=== PATIENT | male | born 1965 | race Caucasian/White ===

== ENCOUNTER 2018-04-18 03:48 | Inpatient (IN) ==
--- NOTE | 2018-04-18 03:49 | PROVIDER DOCUMENTATION ---
HPI-Respiratory General - General Stated Complaint: fever Time Seen by Provider: 04/18/18 03:48 Source: EMS, EMS notes reviewed, other (housekeeper/laundry assistant) Allergies/Adverse Reactions: Patient Allergies Allergy/AdvReac Type Severity Reaction Status Date / Time ibuprofen Allergy Unknown Verified 02/18/14 11:27 Home Medications: Home Medication List Medication Instructions Recorded Confirmed Last Taken Type Ascorbic Acid [Vitamin C] 500 mg PO DAILY 02/18/14 03/03/15 Unknown History Clomipramine [Anafranil] 50 mg PO HS 02/18/14 03/03/15 Unknown History Clonazepam 0.5 mg PO BID 02/18/14 03/03/15 Unknown History Divalproex Sodium [Divalproex 250 mg PO BID 02/18/14 03/03/15 Unknown History Sodium ER] Quetiapine Fumarate 100 mg PO BID 02/18/14 03/03/15 Unknown History Olanzapine Rapdis [Zyprexa Zydis] 10 mg PO QAM PRN PRN #30 tablet 07/16/1403/03 Unknown Rx Esomeprazole [Nexium] 40 mg PO BID 03/03/15 03/03/15 Unknown History Fluoxetine HCl 40 mg PO QAM 03/03/15 03/03/15 Unknown History Iron Fum,Ps/Folic/Bcomp,C No.9 1 tab PO DAILY 03/03/15 03/03/15 Unknown History [Integra Plus Capsule] Neomycin Hussein/Bacitrac Zn/Poly 1 applicatn TOP TID 03/03/15 03/03/15 Unknown History [Triple Antibiotic Ointment] Tamsulosin HCl 0.4 mg PO HS 03/03/15 03/03/15 Unknown History Zinc Oxide 20% Ointment 1 applicatn TOP BID 03/03/15 03/03/15 Unknown History Cefprozil [Cefzil] 500 mg PO BID #20 tab 08/20/17 Unknown Rx - History of Present Illness-Resp Nature of Presenting Problem: Cough, SOB, AMS, fever, decreased activity, decreased po intake, and decreased urine output gradually over the last couple of days. No vomiting or diarrhea. Code status is currently unknown. Quality of Pain: reports: none Severity in ED: reports: moderate Onset/Duration: reports: 2 days ago Timing: reports: still present, constant, getting worse Context: reports: multiple patients with similar complaints, recent URI Exposure: reports: unknown cause Cough Quality/Degree: reports: moderate Episode Frequency: rare episodes Current Respiratory Medication Therapy: Initiated none Modifying Factors: improves with: nothing Associated Symptoms: reports: cough, fever/chills Similar Symptoms Previously?: No Recently seen or treated by another doctor?: No (sandra Wilkinson) Review of Systems - Adult - REVIEW OF SYSTEMS - ADULT ROS:: limited per condition Constitutional: reports: see HPI, fever. denies: chills, night sweats Eyes: reports: no symptoms reported Ears, Nose, Mouth & Throat: reports: no symptoms reported Cardiovascular: reports: no symptoms reported Respiratory: reports: see HPI, cough, excessive sputum production, shortness of breath Gastrointestinal: reports: see HPI, poor appetite. denies: diarrhea, vomiting Genitourinary: reports: no symptoms reported Musculoskeletal: reports: no symptoms reported Integumentary: reports: no symptoms reported Neurological: reports: see HPI Psychiatric: reports: no symptoms reported Endocrine: reports: no symptoms reported Hematologic/Lymphatic: reports: no symptoms reported Allergic/Immunologic: reports: no symptoms reported All Other Systems: Reviewed and Negative Past History - Adult - PAST MEDICAL HISTORY-ADULT Review of Records: reports: Old Records Reviewed, Nursing Assessment Review, Medications Reviewed, Social history reviewed & non-contributory. Major Childhood Illnesses: reports: history unknown Cardiovascular: reports: HTN Respiratory: reports: denies history Gastrointestinal: reports: GERD Obstetrical/Gynecological: reports: denies history Genitourinary: reports: denies history Musculoskeletal: reports: denies history Neurological: reports: speech difficulty, spinal cord/brain injury (cauda equina ), other (special needs/autistic) Psychiatric: reports: psychiatric problems, other (MR) Endocrine/Immune: reports: denies history Other Conditions: reports: denies history - PRIOR SURGERIES/PROCEDURES Surgical/Procedure History: reports: reviewed, not pertinent - PRIOR HOSPITALIZATIONS Prior Hospitalizations: reports: none - IMMUNIZATION STATUS Childhood Immunizations: See Nurse Assessment Flu Vaccine: See Nurse Assessment - FAMILY HISTORY Family History: reviewed, not pertinent - SOCIAL HISTORY Smoking: non-smoker Substance Use: none/never Alcohol Use Frequency: never Living Situation: other (has a housekeeper/laundry assistant) Physical Exam-General - PHYSICAL EXAM-ADULT Initial Vital Signs Reviewed: Yes (tachycardic, tachypneic, febrile) - CONSTITUTIONAL General Appearance: alert, mild distress, other (tongue thrusting, chronically ill appearing) - EYES Eyes: PERRL/EOMI, pale conjunctivae - HEAD, EARS, NOSE, MOUTH & THROAT HENMT: normocephalic/atraumatic, normal ENT inspection, other (dry mucous membranes) - NECK Neck: non-tender, full range of motion, supple, normal inspection. negative: Brudzinski's sign - RESPIRATORY Respiratory: chest non-tender, no pleuratic chest pain, no respiratory distress , no accessory muscle use, rhonchi, wheezing, increased rate. negative: lungs clear, normal breath sounds - CARDIOVASCULAR Cardiovascular: normal peripheral pulses, regular rate, rhythm, no edema, no gallop, no JVD, no murmur, tachycardia - GASTROINTESTINAL (ABDOMEN) Abdominal Exam: normal bowel sounds, non tender, soft, no organomegaly, no pulsatile mass - LYMPHATIC Lymphatic: no adenopathy - MUSCULOSKELETAL Back Exam: normal inspection, no CVA tenderness, no vertebral tenderness Extremity: normal range of motion, non-tender, no pedal edema, no calf tenderness, normal capillary refill - SKIN Integumentary: normal turgor, warm/dry, pallor - NEUROLOGIC Neurologic: ambulance operations supervisor II-XII nml as tested, no motor/sensory deficits, abnormal gait, other (mumbles incoherently. Does not follow commands) - PSYCHIATRIC Psych/Mental Status: anxious Progress - PLAN OF CARE/RESULTS Progress/Plan/Lab Results: Vital Signs - 8 hr 04/18/18 03:53 04/18/18 04:05 Temperature 99.4 F Pulse Rate 111 H 90 Respiratory Rate 22 18 Blood Pressure 139/68 O2 Sat by Pulse Oximetry 100 Laboratory Results - last 24 hr 04/18/18 04/18/18 04/18/18 04:05 04:05 04:05 WBC 9.62 RBC 4.24 L Hgb 13.0 L Hct 39.1 L MCV 92.2 MCH 30.7 MCHC 33.2 RDW Std Deviation 13.5 Plt Count 175 MPV 11.6 H Immature Gran % (Auto) 0.2 Neut % (Auto) 83.3 H Lymph % (Auto) 7.1 L [place] % (Auto) 9.3 Eos % (Auto) 0.0 Baso % (Auto) 0.1 Immature Gran # (Auto) 0.02 Neut # (Auto) 8.02 H Lymph # (Auto) 0.68 L [place] # (Auto) 0.89 H Eos # (Auto) 0.00 Baso # (Auto) 0.01 PT INR Specimen Type Sample Site pH pCO2 pO2 HCO3 Base Excess Oxyhemoglobin ABG O2 Sat (Calculated) ABG O2 Saturation ABG Carboxyhemoglobin ABG Methemoglobin Adair Test A-a O2 Difference Total Hemoglobin Lactate Blood Gas Modality FiO2 % Sodium 139 Potassium 4.6 Chloride 96 L Carbon Dioxide 26 Anion Gap 17 BUN 14 Creatinine 0.6 L Estimated GFR/1.73 m2 > 60 BUN/Creatinine Ratio 23 Glucose 96 Calculated Osmolality 278 Calcium 8.7 L Total Bilirubin 0.27 AST 20 ALT 19 Alkaline Phosphatase 70 Creatine Kinase 102 Troponin T Ebq-C-Voiivvefnvi Pept Total Protein 6.6 Albumin 3.8 Globulin 2.8 Albumin/Globulin Ratio 1.4 Plasma Lactate 4.5 H 04/18/18 04/18/18 04/18/18 04:05 04:05 04:05 WBC RBC Hgb Hct MCV MCH MCHC RDW Std Deviation Plt Count MPV Immature Gran % (Auto) Neut % (Auto) Lymph % (Auto) [place] % (Auto) Eos % (Auto) Baso % (Auto) Immature Gran # (Auto) Neut # (Auto) Lymph # (Auto) [place] # (Auto) Eos # (Auto) Baso # (Auto) PT 12.7 INR 0.88 Specimen Type Sample Site pH pCO2 pO2 HCO3 Base Excess Oxyhemoglobin ABG O2 Sat (Calculated) ABG O2 Saturation ABG Carboxyhemoglobin ABG Methemoglobin Adair Test A-a O2 Difference Total Hemoglobin Lactate Blood Gas Modality FiO2 % Sodium Potassium Chloride Carbon Dioxide Anion Gap BUN Creatinine Estimated GFR/1.73 m2 BUN/Creatinine Ratio Glucose Calculated Osmolality Calcium Total Bilirubin AST ALT Alkaline Phosphatase Creatine Kinase Troponin T < 0.010 Phv-E-Obindixiimn Pept 131 Total Protein Albumin Globulin Albumin/Globulin Ratio Plasma Lactate 04/18/18 04:18 WBC RBC Hgb Hct MCV MCH MCHC RDW Std Deviation Plt Count MPV Immature Gran % (Auto) Neut % (Auto) Lymph % (Auto) [place] % (Auto) Eos % (Auto) Baso % (Auto) Immature Gran # (Auto) Neut # (Auto) Lymph # (Auto) [place] # (Auto) Eos # (Auto) Baso # (Auto) PT INR Specimen Type ARTERIAL Sample Site R RADIAL pH 7.44 pCO2 39 pO2 59 L HCO3 26.5 H Base Excess 2.2 Oxyhemoglobin 91.3 L ABG O2 Sat (Calculated) 15.5 ABG O2 Saturation 93.6 L ABG Carboxyhemoglobin 1.80 ABG Methemoglobin 0.7 Adair Test YES A-a O2 Difference 42.0 Total Hemoglobin 12.1 Lactate 2.90 H Blood Gas Modality ROOM AIR FiO2 % 21.0 Sodium Potassium Chloride Carbon Dioxide Anion Gap BUN Creatinine Estimated GFR/1.73 m2 BUN/Creatinine Ratio Glucose Calculated Osmolality Calcium Total Bilirubin AST ALT Alkaline Phosphatase Creatine Kinase Troponin T Rkq-S-Euxpnuacvjl Pept Total Protein Albumin Globulin Albumin/Globulin Ratio Plasma Lactate Orders Category Date Time Status Saline Loc NOW Care 04/18/18 03:49 Active Straight Catheterization ORDERED Care 04/18/18 03:49 Active CHEST-PORTABLE [RAD] Stat Exams 04/18/18 03:50 Taken ABG [RESP] Routine Lab 04/18/18 04:18 Completed BLOOD CULTURE [BLDCUL] Stat Lab 04/18/18 05:00 Received CBC WITH ELECTRONIC DIFF [HEME] Stat Lab 04/18/18 04:05 Completed CK PROFILE [SP CHEM] Stat Lab 04/18/18 04:05 Results COMPREHENSIVE METABOLIC PANEL [CHEM] Stat Lab 04/18/18 04:05 Results INFLUENZA SCREEN A/B Stat Lab 04/18/18 04:50 Received LACTATE, PLASMA [CHEM] Stat Lab 04/18/18 04:05 Completed PRO B-NATRIURETIC PEPTIDE Stat Lab 04/18/18 04:05 Completed PROTIME WITH INR [COAG] Stat Lab 04/18/18 04:05 Completed TROPONIN T Stat Lab 04/18/18 04:05 Completed URINALYSIS W/POSS RFLX CULT [URINALYSIS] Stat Lab 04/18/18 04:17 Ordered VALPROIC ACID [TDM] Stat Lab 04/18/18 04:05 Results 0.9% Sodium Chloride Inj [Ns] 1,000 ml Med 04/18/18 03:50 Discontinued IV 999 mls/hr 0.9% Sodium Chloride Inj [Ns] 1,000 ml Med 04/18/18 05:18 Active IV 999 mls/hr 0.9% Sodium Chloride Inj [Ns] 500 ml Med 04/18/18 05:18 Active IV 999 mls/hr Acetaminophen [Tylenol] Med 04/18/18 03:51 Discontinued 650 mg PO NOW ONE Albuterol 2.5MG/Ipratrop 0.5MG [Duoneb (A & A)] Med 04/18/18 03:51 Discontinued 3 ml INH NOW ONE Azithromycin 500 mg/Ns [Zithromax 500 mg/Ns] Med 04/18/18 03:50 Discontinued 500 mg in 250 ml IV NOW CefTRIAXONE [Rocephin] 1 gm Med 04/18/18 03:50 Discontinued 0.9% Sodium Chloride Inj [Ns] 50 ml IV NOW Aerosol Treatments Routine Oth 04/18/18 03:52 Completed Aerosol Treatments Stat Oth 04/18/18 03:52 Completed EKG [EKG] Stat Ther 04/18/18 03:49 Ordered Result Diagrams: 04/18/18 04:05 04/18/18 04:05 - EKG 1 Time of EKG reading by physician:: 04:47 EKG Read and Signed by:: Augie Sung EKG Interpretation (*Must complete 3 of following elements*): Abnormal Rate: 125 Rhythm: Sinus tachy [place]: normal QRS: normal MD Interval: normal ST Wave: non-specific ST changes Comments: borderline prolonged qtc - XRAY 1 XRAY Study: Chest Impression: Abnormal XRAY Interpretation: read by me at 0520. Borderline CM, bilateral infiltrates. bilateral pneumo - CONSULTS/PCP/HOSPITALIST Notification #1 *Consult/PCP/Hospitalist*: [place] Time Discussed: 05:22 Consult Disposition: Will see in ED Departure - Departure Date of Disposition Decision: 04/18/18 Time of Disposition Decision: 05:21 DIAGNOSIS: Severe sepsis Bilateral pneumonia Qualifiers: Pneumonia type: due to unspecified organism Lung location: unspecified part of lung Qualified Code(s): J18.9 - Pneumonia, unspecified organism Altered mental status, unspecified Qualifiers: Altered mental status type: transient alteration of awareness Qualified Code(s) : R40.4 - Transient alteration of awareness Disposition: ADMITTED INPATIENT 09 Certified Medical Emergency: Emergent Condition: Fair - Critical Care Note This patient required my direct & personal management of CC.: Yes Total Time (mins): 40 Critical Care Statement: This patient required my direct personal management to treat or rule out processes, the absence of which, could potentiallly result in sudden, clinically significant life or limb threatening deterioration. Attestation - Physician/ MORENA Attestation Patient care was provided by Advanced Practice Provider:: No The physician spent face to face time with patient:: Yes Advanced Practice Provider documentation review:: Supervising physician onsite and consulted in the evaluation and care of this patient. The physician did have a face to face encounter with the patient.
[2018-04-18] MEDS ORDERED: ROCEPHIN 1 GM in NS 50 ML IV ONE (03:50)
[2018-04-18] MEDS ORDERED: ZITHROMAX 500 MG/NS 500 MG/250 ML IVPB IV ONE (03:50)
[2018-04-18] MEDS ORDERED: NS 1,000 ML IV ONE ×2 (03:50→05:18)
[2018-04-18] MEDS ORDERED: DUONEB (A & A) INH ONE (03:51)
[2018-04-18] MEDS ORDERED: TYLENOL PO ONE (03:51)
[2018-04-18 04:27] LABS: ALLEN TEST YES; BE 2.2 mmoll (-3.0-3.0); BLOOD TYPE ARTERIAL; HCO3-(ACT) 26.5 mmoll (20.0-26.0); METHB 0.7 % (0.0-1.5); O2(CT) 15.5 mL/dL (15.0-23.0); O2HB 91.3 % (95.0-99.0); PCO2(98.6) 39 mmHg (35-45); PO2(98.6) 59 mmHg (60-100); SAMPLE BLOOD; SAO2 93.6 % (95.0-100.0); THB 12.1 g/dL (11.5-17.4); pH(98.6) 7.44 (7.35-7.45)
[2018-04-18 04:30] LABS: MODALITY ROOM AIR
[2018-04-18 04:45] LABS: BASO# 0.01 X1000 (0.0-0.2); BASO% 0.1 % (0.0-0.8); HEMATOCRIT 39.1 % (42.0-52.0); IMM GRAN# 0.02 X1000 (0.0-0.04); IMM GRAN% 0.2 % (0.0-0.5); LYMPH# 0.68 X1000 (1.2-3.4); LYMPH% 7.1 % (20.5-51.1); MCH 30.7 PG (27-31); MCHC 33.2 g/dL (33-37); MCV 92.2 FL (81-99); MONO# 0.89 X1000 (0.11-0.59); MONO% 9.3 % (1.7-9.3); MPV 11.6 FL (7.4-10.4); NEUT# 8.02 X1000 (1.4-6.5); NEUT% 83.3 % (42.2-75.2); PLT 175 X1000 (130-400); RBC 4.24 XMIL (4.7-6.1); RDW 13.5 % (11.5-14.5); WBC 9.62 X1000 (4.8-10.8)
[2018-04-18 04:55] LABS: AGAP 17; ALB/GLOB RATIO 1.4; ALBUMIN 3.8 g/dL (3.5-5.0); ALKALINE PHOSPHATASE 70 U/L (32-122); BUN 14 mg/dL (8-22); CALCIUM 8.7 mg/dL (8.8-10.2); CHLORIDE 96 mmol/L (98-107); CK PROFILE 102 U/L (24-204); COSMO 278; CREATININE 0.6 mg/dL (0.7-1.2); ESTIMATED GFR > 60; GLUCOSE 96 mg/dL (70-104); GOT 20 U/L (10-34); GPT 19 U/L (10-44); POTASSIUM 4.6 mmol/L (3.5-5.1); SODIUM 139 mmol/L (136-145); TCO2 26 mmol/L (25-35); TOTAL BILIRUBIN 0.27 mg/dL (0.20-1.00); TOTAL PROTEIN 6.6 g/dL (6.3-8.3)
[2018-04-18 05:09] LABS: INR 0.88; PROTIME 12.7 Seconds (11.0-16.0)
[2018-04-18] MEDS ORDERED: NS 500 ML IV ONE (05:18)
--- NOTE | 2018-04-18 06:21 | HISTORY AND PHYSICAL ---
CHIEF COMPLAINT: Shortness of breath and fever. HISTORY OF PRESENT ILLNESS: This is a 52-year-old male who is [place] from the jail by his parts sales representative. The parts sales representative does not know very many specifics about the patient. He has a past medical history that is largely unknown. The parts sales representative states that he does not have any history of hypertension or diabetes at all. He does have MR with autism, which is fairly severe. He only says "Yes and No" and "water and tea" just very simple words. He cannot state whether he is in pain. He reportedly also just one day stopped walking. The parts sales representative was unable to tell us why. The ER charting has a history of spinal cord cauda equina which is questionable , but the patient is bedbound and wheelchair bound. No other past medical history could be obtained. The patient last night at 9:00 p.m. started having a cough and increasing shortness of breath accompanied by fever and decreased activity and decreased oral intake. His urine also decreased gradually over the last couple of days. He had no vomiting or diarrhea. He had symptoms per the caregiver that were similar to upper respiratory infection. Laboratory data and chest x-ray were obtained. Chest x-ray showed bilateral pneumonia. Patient was mildly hypoxic with a pO2 of 59 on room air. Plasma lactate was elevated at 4.5. He was also tachycardic with a heart rate in the 120s. He will be admitted to CICU for further evaluation and treatment. PAST MEDICAL HISTORY: See HPI. PREVIOUS SURGICAL HISTORY: None per the caregiver. FAMILY HISTORY: Unknown. SOCIAL HISTORY: Lives at a jail. No tobacco, alcohol, or illicit drugs. ALLERGIES: Ibuprofen. HOME MEDICATIONS: A list of home medications have not been reconciled. Order was placed for nursing to reconcile the home medications with the jail. REVIEW OF SYSTEMS: This could not be obtained. Pertinent positives as listed above in the HPI. All other systems could not be reviewed. PHYSICAL EXAMINATION: VITAL SIGNS: Temperature 99.4 degrees Fahrenheit, pulse 120, respirations 23, blood pressure 131/98. Oxygen saturation 92% on 2 L nasal cannula. GENERAL: A chronically ill-appearing, 52-year-old male, lying on the ER stretcher. He says "No". This ids all. He does not follow commands. He does not appear to be in acute distress at this time. HEENT: Head is normocephalic and atraumatic. Pupils are equal, round and reactive to light. Extraocular eye movements. The patient tracks around the room. Otherwise, does not follow commands. Oral mucosa is dry. NECK: Supple. No JVD. No thyromegaly. Trachea is midline. No cervical lymphadenopathy. CARDIAC: S1, S2 appreciated. No murmurs, gallops or rubs. The patient is tachycardic. LUNGS: Coarse, right greater than left. No wheezing. No rales. Symmetrical rise and fall of respirations. ABDOMEN: Soft, nontender, nondistended. Bowel sounds present all four quadrants normoactive. No pulsatile mass. No organomegaly. GENITOURINARY: No bladder distention. Schwarz catheter will be placed for I's and O's. EXTREMITIES: No clubbing, cyanosis or edema. Two-plus pedal pulses. NEUROLOGIC: The patient says "No", makes kind of mumbling sounds, otherwise orientation could not be assessed. Cranial nerves could not be fully tested as the patient does not follow commands. SKIN: Warm, dry and intact. IMAGING: Chest x-ray shows bilateral infiltrates consistent with pneumonia. LABORATORY DATA: WBC 9.62, hemoglobin 13, hematocrit 39.1, platelet count 175, 000. ABG: pH 7.44, pCO2 39, pO2 59, bicarb 26.5 on room air. Chemistry panel within normal limits other than a chloride of 96. Plasma lactate 4.5. IMPRESSION AND PLAN: 1. Community-acquired pneumonia. We will treat with Zithromax and Rocephin IV daily. DuoNebs. Blood cultures and sputum cultures will be ordered. Oxygen per protocol. 2. Fluid volume depletion. The patient is tachycardic with an elevated lactate. Recheck lactate level is not hypotensive. He was mildly febrile. We will treat with Tylenol. 3. Early sepsis. See above. 4. Autism/aware. The patient is mostly nonverbal. We will continue home medications when available. Further recommendations per the patient's clinical course. Dictated by NAVA Arita for Crystal Wall MD cc: NAVA Arita MD My bedside assessment of this patient was only notable for decreased air entry bilaterally. I discussed the above plan of care with PLASTIC OUTFITTER. Pt' has acute hypoxia 2 /2 to CAP,but cannot rule out aspiration pneumonia. If symptoms don't improve, consider stopping Zithromax and starting Clindamycin. MTDD
--- NOTE | 2018-04-18 07:15 | Diag Imaging Result Doc PS360 ---
CHEST-PORTABLE - 04/18/2018 INDICATION: cough COMPARISON: 08/20/2017 FINDINGS: There are dense bilateral alveolar infiltrates. There is pulmonary vascular congestion. Heart size is borderline enlarged. IMPRESSION: Dense bilateral infiltrates that are indeterminate. Electronically signed by Abram Soliz 04/18/2018 7:13 AM
--- NOTE | 2018-04-18 08:26 | EKG Report ---
Test Performed on : 04/18/2018 04:43:43 AM Test Reason : cough Blood Pressure : / mmHG Vent. Rate : 125 BPM Atrial Rate : 125 BPM P-R Int : 122 ms QRS Dur : 104 ms QT Int : 342 ms P-R-T Axes : 050 006 037 degrees QTc Int : 493 ms Sinus tachycardia. Nonspecific ST abnormality Abnormal ECG When compared with ECG of 30-AUG-2010 10:08, No significant change was found Unconfirmed Result
[2018-04-18 09:10] LABS: URINE SOURCE CATH
[2018-04-18 09:13] LABS: BILIRUBIN URINE NEGATIVE (NEGATIVE); BLOOD URINE SMALL (NEGATIVE); COLOR YELLOW; GLUCOSE URINE NEGATIVE (NEGATIVE); KETONE URINE NEGATIVE (NEGATIVE); LEUKOCYTES URINE LARGE (NEGATIVE); NITRITE URINE POSITIVE (NEGATIVE); PROTEIN URINE TRACE mg/dL (NEGATIVE); SP GRAVITY URINE 1.012; TURBIDITY URINE CLEAR (CLEAR); UROBILINOGEN URINE NORMAL (NORMAL)
[2018-04-18 09:15] LABS: UR EPITHELIAL CELLS <10 /HPF (<10); URINE BACTERIA NEGATIVE /HPF; URINE WBC 20-40 /HPF (<10)
[2018-04-18] MEDS: NS 1,000 ML IV SCH ×2 (09:36→16:41)
[2018-04-18] MEDS: LOVENOX SUBQ SCH (09:40)
[2018-04-18] MEDS: DUONEB (A & A) INH SCH ×3 (09:54→21:27)
[2018-04-18] MEDS ORDERED: VANCOMYCIN IV PER PHARMACY MISC SCH (10:30)
--- NOTE | 2018-04-18 10:40 | PROGRESS NOTE ---
DATE: 04/18/2018 Mr. Armendariz was admitted because of change in his functional status. Apparently , he had stopped walking since about 24 hours. In the emergency room he was found to have bilateral multiple lobe pneumonia with lactic acidosis. He was started on intravenous antibiotics for community-acquired pneumonia. SUBJECTIVE: When I saw the patient, he was receiving breathing treatment. He did not appear in acute distress. He follows simple commands like opening his hand for pulse check and opening the mouth. Vitals detected. The patient has been afebrile. He has been tachycardic with heart rate of 115 per minute. He also has been hypotensive with a blood pressure of 90s/ 80s and 80s/70s. He is saturating 96% on 4 L nasal cannula. LABORATORIES: Initial laboratories suggest normocytic anemia, hypoxemic respiratory failure, normal electrolytes and lactic acidosis. ASSESSMENT AND PLAN: 1. Acute hypoxemic respiratory failure because of bilateral community-acquired pneumonia affecting multiple lobes. Continue oxygenation to maintain saturation more than 94%. Continue albuterol ipratropium nebulization every 6 hours. 2. Lactic acidosis, likely because of profound hypotension and now what appears to be septic shock. Continue intravenous fluid resuscitation. We will evaluate the need for pressors and possibly transfer the patient to ICU. If he continues to remain hypotensive , though currently his maps have been more than 65. 3. Bilateral community-acquired pneumonia. I will broaden his antibiotics coverage to include MRSA and resistant gram-negative as well. We will follow up with final blood , sputum culture and urine culture results. He has not been able to make sputum as of yet. Start IV vancomycin and IV Zosyn. 4. History of mental retardation and autism. Aware. I would restart some of his home medication including valproate, clomipramine, clonazepam. I will add fluoxetine, quetiapine, and risperidone as tolerated in future. 5. History of what looks like chronic gastroesophageal reflux disease. Continue home esomeprazole . 6. Others: I will follow up with urine Legionella and urine pneumococcal antigen. Plan of care were discussed with the patient's art director at the bedside. All of her questions have been answered. cc: Diego Oliver MD MTDD
[2018-04-18] MEDS: NEXIUM PO SCH ×2 (11:10→20:34)
[2018-04-18] MEDS: ZOSYN 3.375 GM in NS 50 ML IV SCH ×3 (11:10→23:07)
[2018-04-18] MEDS ORDERED: VANCOMYCIN 2.25 GM in NS 500 ML IV ONE (12:00)
[2018-04-18] MEDS: ANAFRANIL PO SCH (20:34)
[2018-04-18] MEDS: DEPAKOTE ER PO SCH (20:34)
[2018-04-18] MEDS: FLOMAX PO SCH (20:34)
[2018-04-18] MEDS: KLONOPIN PO SCH (20:34)
[2018-04-18] MEDS ORDERED: RISPERDAL PO SCH (21:00)
[2018-04-18] MEDS ORDERED: SEROQUEL PO SCH (21:00)
[2018-04-19] MEDS: NS 1,000 ML IV SCH (02:20)
[2018-04-19] MEDS ORDERED: ROCEPHIN 1 GM in NS 50 ML IV SCH (03:00)
[2018-04-19] MEDS: ZOSYN 3.375 GM in NS 50 ML IV SCH ×2 (03:38→15:41)
[2018-04-19] MEDS: DUONEB (A & A) INH SCH ×5 (03:42→22:07)
[2018-04-19] MEDS ORDERED: ZITHROMAX 500 MG/NS 500 MG/250 ML IVPB IV SCH (04:00)
[2018-04-19 05:39] LABS: BASO# 0.01 X1000 (0.0-0.2); BASO% 0.1 % (0.0-0.8); EOS# 0.04 X1000 (0.0-0.7); EOS% 0.3 % (0.0-10.0); HEMATOCRIT 33.1 % (42.0-52.0); HEMOGLOBIN 10.9 g/dL (14.0-18.0); IMM GRAN# 0.06 X1000 (0.0-0.04); IMM GRAN% 0.4 % (0.0-0.5); LYMPH# 1.87 X1000 (1.2-3.4); LYMPH% 12.9 % (20.5-51.1); MCH 30.3 PG (27-31); MCHC 32.9 g/dL (33-37); MCV 91.9 FL (81-99); MONO% 6.9 % (1.7-9.3); MPV 10.8 FL (7.4-10.4); NEUT# 11.52 X1000 (1.4-6.5); NEUT% 79.4 % (42.2-75.2); PLT 152 X1000 (130-400); RDW 13.6 % (11.5-14.5)
[2018-04-19 06:18] LABS: AGAP 11; BUN 7 mg/dL (8-22); CHLORIDE 100 mmol/L (98-107); COSMO 272; CREATININE 0.4 mg/dL (0.7-1.2); ESTIMATED GFR > 60; GLUCOSE 103 mg/dL (70-104); POTASSIUM 3.4 mmol/L (3.5-5.1); SODIUM 137 mmol/L (136-145); TCO2 26 mmol/L (25-35)
[2018-04-19] MEDS: VANCOMYCIN IV SCH (06:28)
[2018-04-19] MEDS: NS IV SCH (06:28)
--- NOTE | 2018-04-19 07:52 | Diag Imaging Result Doc PS360 ---
CHEST-PORTABLE - 04/19/2018 INDICATION: dyspnea COMPARISON: 04/18/2018 FINDINGS: No change in the dense bilateral infiltrates. Heart size remains stable. No pneumothorax or large pleural effusion. IMPRESSION: No change from prior. Electronically signed by Abram Soliz 04/19/2018 7:49 AM
[2018-04-19] MEDS: NEXIUM PO SCH (08:18)
[2018-04-19] MEDS: KLONOPIN PO SCH ×3 (08:18→20:05)
[2018-04-19] MEDS: DEPAKOTE ER PO SCH ×3 (08:18→20:04)
[2018-04-19] MEDS: RISPERDAL PO SCH ×3 (08:18→20:05)
[2018-04-19] MEDS: LOVENOX SUBQ SCH (08:27)
[2018-04-19] MEDS ORDERED: PROZAC PO SCH (09:00)
[2018-04-19] MEDS ORDERED: LASIX PO SCH (09:00)
[2018-04-19] MEDS ORDERED: HALDOL IV ONE (10:06)
[2018-04-19] MEDS ORDERED: LASIX IV ONE (10:07)
[2018-04-19] MEDS ORDERED: NS 250 ML ONE (10:21)
--- NOTE | 2018-04-19 10:53 | PROGRESS NOTE ---
DATE: 04/19/2018 SUBJECTIVE: This morning, Mr. Armendariz seems to be having more difficulty breathing, very tachypneic, with a respiratory rate in the 30s. According to the nurses, he sounds more wheezy today than he was yesterday. OBJECTIVE: Vital Signs: Currently, blood pressure is 145/68, pulse is 113, respirations are 24, temperature is 98.0 degrees, patient was saturating 96% on 3 L. General Examination: Mr. Armendariz is a 52-year-old, male. He is in bed. He is very tachypneic. HEENT: Mucosa is pink and moist. Anicteric. Acyanotic. Neck: Supple. No JVD. Respiratory System: Air entry is bilaterally reduced. There is diffuse end expiratory wheezing as well as crackles in both lung fragoso. There is intercostal retraction and obvious difficulty breathing. Cardiovascular: Tachycardic but no murmurs, no rubs, no gallops. GI: Abdomen was soft, distended, slightly tympanic on percussion but bowel sounds were present and normal. Extremities: Trace of pedal edema. MANAGER CARDIOVASCULAR: Patient is awake, alert. Does not respond to any questioning. I understand he has baseline autism with mental retardation. The patient is also a [facility] of a [facility]. ASSESSMENT: 1. Acute hypoxemic respiratory failure. The patient is currently on nasal cannula. He is saturating okay. However, he is looking more tachypneic, having more difficulty breathing so we are going to put him on BiPAP to help with work of breathing. 2. Bilateral dense infiltrates in both alveolar spaces. This is concerning for multifocal pneumonia. Questionable if there is any aspiration component to it. The patient is currently on intravenous antibiotics. Cultures have been done. The image is concerning for acute respiratory distress syndrome and with the patient having obvious respiratory distress, we are going to put him on BiPAP, keep a very close eye for next 2 to 4 hours. If things do not get any better, we are going to transfer him from the [facility] to the intensive care unit. I have also consulted both pulmonary medicine and infectious disease. 3. Pulmonary venous congestion associated with bronchospasms. I think this is all related to the ongoing pulmonary pathology. Unsure if it is a bacterial pneumonia or an aspiration pneumonia. The patient is still on antibiotics and we will get the other subspecialties to evaluate him. 4. Lactic acidosis on presentation, improved. 5. Sepsis syndrome, likely due to underlying pneumonia, stable. 6. History of autism with mental retardation noted. PLAN: In general, I think Mr. Armendariz looks more respiratory compromised. I have discontinue the IV fluids and I will give him 40 mg of IV Lasix stat. We will continue with the current antibiotic coverage (Zosyn and vancomycin). We will get a PICC line. We will also put him on a BiPAP and re-evaluate him in the next 4 hours. We have consulted ID and pulmonary medicine. The patient is a potential transfer to the ICU if no clinical improvement. We will also continue with the PPI but we will change it from p.o. to IV. cc: Ja Stern MD
[2018-04-19] MEDS ORDERED: HALDOL IM ONE (13:38)
[2018-04-19 13:54] LABS: ALLEN TEST NO; BE 2.6 mmoll (-3.0-3.0); BLOOD TYPE ARTERIAL; HCO3-(ACT) 26.9 mmoll (20.0-26.0); METHB 0.7 % (0.0-1.5); MODALITY BI PAP; O2(CT) 14.5 mL/dL (15.0-23.0); O2HB 95.3 % (95.0-99.0); PCO2(98.6) 41 mmHg (35-45); PO2(98.6) 76 mmHg (60-100); SAMPLE BLOOD; SAO2 97.4 % (95.0-100.0); SRATE 18 BPM; THB 10.8 g/dL (11.5-17.4); pH(98.6) 7.43 (7.35-7.45)
[2018-04-19] MEDS: TYLENOL PO PRN ×2 (15:41→22:47)
[2018-04-19] MEDS: PROTONIX IV SCH (15:50)
[2018-04-19] MEDS: ZYPREXA IM PRN ×2 (16:03→22:41)
[2018-04-19] MEDS ORDERED: ROCEPHIN 2 GM in NS 50 ML IV SCH (18:00)
[2018-04-19] MEDS: ANAFRANIL PO SCH ×2 (19:50→20:04)
[2018-04-19] MEDS: FLOMAX PO SCH ×2 (19:51→20:05)
[2018-04-20] MEDS: NS IV SCH (00:03)
[2018-04-20] MEDS: VANCOMYCIN IV SCH (00:03)
--- NOTE | 2018-04-20 02:55 | INFECTIOUS DISEASE CONSULT REP ---
DATE: 04/19/2018 INFORMATION RESOURCE: The patient was unable provide a history and no family member was present. The information I obtained from the patient was from the computer. CONCLUSION: The patient has bilateral infiltrates which I think are due to pneumonia. There may be an element of pulmonary venous congestion as well. The patient also has one out of two blood cultures which is growing a gram-positive coccus. This may be a contaminant such as Staphylococcus epidermidis or it could be a pathogen such as Staphylococcus aureus or Streptococcus pneumoniae. RECOMMENDATIONS: I agree with treating the patient with vancomycin. I have substituted Rocephin for Zosyn. I have also ordered immunoglobulin levels. DISCUSSION: The patient is unable to provide a history. No family member is present as mentioned above. The patient was admitted to the hospital because of shortness of breath and fever. His laboratory studies show a CBC with a white count of 14,500, hemoglobin 10.9, and platelet count 152,000. Creatinine is 0.4. GFR is greater than 60. Arterial blood gases show a pH of 7.43, a pO2 of 76, a pCO2 of 41. Liver function studies are normal. Urinalysis showed white cells but no bacteria. Sputum culture showed normal florae. Urine culture is negative. As mentioned above, one of two blood cultures is growing a gram-positive coccus. An influenza swab was negative. Chest x-ray shows bilateral infiltrates. PAST MEDICAL HISTORY: The patient has autism. PAST SURGICAL HISTORY: None known for sure. FAMILY HISTORY: Unknown. SOCIAL HISTORY: The patient lives in a custodial. He does not smoke cigarettes, drink alcoholic beverages, or use illicit drugs. ALLERGIES: The patient has an allergy to ibuprofen. HOME MEDICATIONS: Include the following: Vitamin C, cefprozil, Anafranil, clonazepam, divalproex, Nexium, fluoxetine, Lasix, melatonin, Zyprexa Zydis , Zofran, quetiapine, ranitidine, Risperdal, tamsulosin, zolpidem. PHYSICAL EXAMINATION: Vital Signs: Temperature is 98 degrees, pulse at 107, respirations 26, blood pressure 153/74. Patient is 6 feet 1 inch tall and weighs 182 pounds. General: This is a somewhat ill-appearing, middle-aged male. He is in no acute distress. Head, Eyes, Ears, Nose, and Throat: No drainage was noted from the nose or ears. The patient did not open his mouth and I was unable to examine it. Neck: No meningismus. Lungs: Clear to auscultation. Cardiovascular: Regular heart rate. Abdomen: Soft and nontender. Neurologic: The patient is awake. He did move his arms and legs to request. There was no tremor. He did not answer questions. Integument: No rash noted. Thank you for the consult. cc: Chito Cornejo MD
--- NOTE | 2018-04-20 03:12 | CONSULTATION ---
DATE OF CONSULTATION: 04/19/2018 REQUESTING PROVIDER: Pillo Stern MD. REASON FOR CONSULTATION: Respiratory failure. HISTORY OF PRESENT ILLNESS: This is a 52-year-old male with autism and mental retardation. His medical history remains largely unknown. Based on the report from the ER he has hypertension and gastroesophageal reflux disease. He may also have seizure based on his home medication. 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 Upon arrival he had tachycardia with pulse rate of 111 , and tachypnea with respiratory rate of 22. Chest x-ray reveals bilateral pneumonia. Labs showed acute hypoxemic respiratory failure with a PO2 of 59 at room air, lactic acidosis with plasma lactate of 4.5. He has been admitted to the CICU for further evaluation and treatment. Currently the patient is lying in bed quietly with eyes closed and BiPAP on. The patient's caregiver, Debbie is at bedside. She is not clear whether the patient has asthma. She reports the patient has chronic bilateral lower extremity swelling, and he is on Lasix daily. He is easy to get choked when drinking liquid as he usually rushes to drink. He has no vomiting or diarrhea. PAST MEDICAL HISTORY: See HPI. SOCIAL HISTORY: The patient lives at a prison. Per caregiver he has no tobacco, alcohol or illicit drug use. FAMILY HISTORY: Unknown. ALLERGIES: Ibuprofen. REVIEW OF SYSTEMS: Unable to obtain. PHYSICAL EXAMINATION: Vital Signs: Temperature 98, pulse 113, blood pressure 145/68, respiratory rate 24, and oxygen saturation 96% on BiPAP 16/6. HEENT: Atraumatic. Trachea midline. Respiratory: Tachypneic, Shallow, coarse breathing sounds with crackles bilaterally on auscultation. Cardiovascular: Sinus tachycardia, with regular rate and rhythm. Gastrointestinal: Soft, distended. Normoactive bowel sounds in all 4 quadrants. Extremities: Bilateral lower extremity pitting edema 2+. Neurologic: Unable to examine. The caregiver reports the patient only says "yes""no""water" and "tea", but he usually has no trouble understanding simple communications. The patient does have echolalia and he repeats part of phrases that he hears. LABORATORY DATA: White blood cell 14.50, hemoglobin 10.9, hematocrit 33.1, platelet 152,000. Sodium 137, potassium 3.4, chloride 100, carbon dioxide 26, BUN 7, creatinine 0.4, and glucose 103. ABG, pH 7.43, pCO2 41, PO2 76, HCO3 26.9, base excess 2.6, and oxyhemoglobin 97.4. IMAGING: Chest x-ray shows no change from prior with stable dense bilateral infiltrates. ASSESSMENT: This is a 52-year-old male with autism and mental retardation. His medical history includes possible hypertension, gastroesophageal reflux disease, and seizure. He has been admitted to the CICU for acute hypoxemic respiratory failure, pneumonia, shock and sepsis. 1. Acute hypoxemic respiratory failure. 2. Multifocal pneumonia community-acquired and possible aspiration related to sepsis. 3. Sepsis. PLAN: 1. Continue antibiotics and bronchodilators as prescribed. 2. Continue supplemental oxygen and BiPAP. 3. Routine ABG and chest x-ray. 4. Continue GI and DVT prophylaxis. Thank you for the courtesy of this consult. Dictated by NAVA Hale for Rubina Beard MD cc: NAVA Hale MD [facility]
[2018-04-20] MEDS: DUONEB (A & A) INH SCH ×4 (03:33→21:27)
[2018-04-20] MEDS: TYLENOL PO PRN (04:30)
[2018-04-20] MEDS ORDERED: LASIX IV ONE (04:56)
[2018-04-20 05:02] LABS: ALLEN TEST YES; BE 2.6 mmoll (-3.0-3.0); BLOOD TYPE ARTERIAL; HCO3-(ACT) 26.9 mmoll (20.0-26.0); METHB 1.3 % (0.0-1.5); O2(CT) 19.1 mL/dL (15.0-23.0); O2HB 94.6 % (95.0-99.0); PCO2(98.6) 41 mmHg (35-45); PO2(98.6) 85 mmHg (60-100); SAMPLE BLOOD; SAO2 96.9 % (95.0-100.0); THB 14.3 g/dL (11.5-17.4); pH(98.6) 7.43 (7.35-7.45)
[2018-04-20 05:09] LABS: MODALITY BI PAP
[2018-04-20 05:22] LABS: BASO# 0.01 X1000 (0.0-0.2); BASO% 0.1 % (0.0-0.8); EOS# 0.01 X1000 (0.0-0.7); EOS% 0.1 % (0.0-10.0); HEMATOCRIT 29.8 % (42.0-52.0); HEMOGLOBIN 9.7 g/dL (14.0-18.0); IMM GRAN# 0.05 X1000 (0.0-0.04); IMM GRAN% 0.4 % (0.0-0.5); LYMPH# 1.92 X1000 (1.2-3.4); LYMPH% 14.2 % (20.5-51.1); MCH 29.9 PG (27-31); MCHC 32.6 g/dL (33-37); MONO# 0.73 X1000 (0.11-0.59); MONO% 5.4 % (1.7-9.3); MPV 10.9 FL (7.4-10.4); NEUT# 10.79 X1000 (1.4-6.5); NEUT% 79.8 % (42.2-75.2); PLT 138 X1000 (130-400); RBC 3.24 XMIL (4.7-6.1); RDW 13.1 % (11.5-14.5); WBC 13.51 X1000 (4.8-10.8)
[2018-04-20 05:35] LABS: AGAP 9; ALBUMIN 2.7 g/dL (3.5-5.0); BUN 6 mg/dL (8-22); CALCIUM 7.8 mg/dL (8.8-10.2); CHLORIDE 94 mmol/L (98-107); COSMO 258; CREATININE 0.4 mg/dL (0.7-1.2); ESTIMATED GFR > 60; GLUCOSE 116 mg/dL (70-104); PHOSPHORUS 2.1 mg/dL (2.7-4.5); SODIUM 129 mmol/L (136-145); TCO2 26 mmol/L (25-35)
--- NOTE | 2018-04-20 07:49 | INFECTIOUS DISEASE PROGRESS NO ---
DATE: 04/20/2018 PRESENT ILLNESS: The patient has bilateral infiltrates which I think are due to pneumonia. There may be a component of pulmonary venous congestion as well. The patient had one of two blood cultures positive for a coagulase-negative staphylococcus. This is a contaminant and not a pathogen. MEDICATIONS: The patient was on a combination of vancomycin and Rocephin. I have discontinued Rocephin and put the patient back on cefepime. PHYSICAL EXAMINATION: Vital Signs: Temperature is 98.9 degrees, pulse 107, respirations 20, blood pressure 131/69. General: This is a somewhat ill-appearing, middle-aged male. He is in no acute distress. Head, Eyes, Ears, Nose, and Throat: No drainage is noted from the nose or the ears. He did not open his mouth when I asked him so I could look to see if there was any thrush present. There was no drainage from the nose or ears. Neck: Not stiff. Lungs: Clear to auscultation. Cardiovascular: Regular heart rate. Abdomen: Soft and nontender. Neurologic: The patient is awake. He did follow requests to move his extremities. There is no tremor. LAB AND X-RAY: The x-ray for today has not been read by the radiologist, but to me, it appears that he has bilateral infiltrates similar to the x-ray yesterday. The patient's CBC shows a white count of 13,510, hemoglobin 9.7, and platelet count 138,000. Blood gases show a pH of 7.43, a pO2 of 85, and a pCO2 of 41. Creatinine is 0.4. GFR is greater than 60. The patient had one blood culture positive. It is a coagulase-negative staphylococcus which I interpret to be a contaminant and not a pathogen. ASSESSMENT AND PLAN: The patient has bilateral pneumonia. I plan to continue vancomycin and cefepime. As mentioned earlier, the patient has got one of two blood cultures positive for coagulase-negative staphylococcus. I interpret this to be a contaminant which does not require antibiotic treatment. COMORBIDITIES: The patient has severe autism and he lives in a prison but he does not smoke cigarettes. cc: Chito Cornejo MD
--- NOTE | 2018-04-20 07:54 | Diag Imaging Result Doc PS360 ---
EXAM: CHEST-1 VIEW 04/20/2018 HISTORY: SOB TECHNIQUE: AP portable at 0543 COMMENT: There is alveolar opacity bilaterally this was also present on 04/19/2018. IMPRESSION: Pulmonary edema and/or pneumonia. Electronically signed by Giovani Salter 04/20/2018 7:52 AM
[2018-04-20] MEDS ORDERED: POTASSIUM PHOSPHATE 30 MEQ in NS 250 ML IV ONE (08:01)
[2018-04-20] MEDS ORDERED: MAGNESIUM SULFATE 2 GM/S.W.I. 2 GM/50 ML IVPB IV ONE (08:02)
[2018-04-20] MEDS: PROTONIX IV SCH (09:55)
[2018-04-20] MEDS: RISPERDAL PO SCH ×2 (09:55→21:05)
[2018-04-20] MEDS: KLONOPIN PO SCH ×2 (09:55→21:05)
[2018-04-20] MEDS: LOVENOX SUBQ SCH (09:55)
[2018-04-20] MEDS: DEPAKOTE ER PO SCH ×2 (09:56→21:05)
[2018-04-20] MEDS ORDERED: ATIVAN IV ONE (12:48)
--- NOTE | 2018-04-20 14:12 | Diag Imaging Result Doc PS360 ---
EXAM: CT THORAX W/CONTRAST 04/20/2018 HISTORY: Hypoxemic failure. ARDS TECHNIQUE: This exam was performed using automated exposure control, adjustment of mA or kV according to patient size, and/or use of iterative reconstruction technique. COMMENT: There are no previous studies available for comparison. There is dense alveolar opacification in both upper lobes and the bases of the lower lobes. There are bilateral pleural effusions. There is a large hiatal hernia. There is some motion artifact due to the patient's tachypnea. There is no evidence of significant adenopathy. The regional skeleton is intact. IMPRESSION: Pulmonary edema plus minus pneumonia. Pleural effusions. Electronically signed by Giovani Salter 04/20/2018 2:09 PM
--- NOTE | 2018-04-20 14:40 | PROGRESS NOTE ---
DATE: 04/20/2018 SUBJECTIVE: This morning, Mr. Armendariz seems to be fairly stable. There was a nurse health center assistant at the bedside giving him his lunch. Per the nursing staff, no major changes overnight. The patient seems to be tolerating the BiPAP well. OBJECTIVE: Vital signs: Blood pressure 159/84, pulse 109, respiration 40, temperature 98.4 degrees. General: Mr. Armendariz is a 52-year-old gentleman. He was in bed. He seems to be slightly tachypneic. HEENT: Mucosa is pink and moist. Anicteric and acyanotic. Neck: Supple. Respiratory: There is diffuse wheezing in both lung fragoso and some crepitations posteriorly. Cardiovascular: Regular rate and rhythm. Did not appreciate any murmurs. No rubs. No gallops. Abdomen: Soft, distended, but nontender. Bowel sounds were present. Extremities: No pedal edema. Distal pulses are present. Central nervous system: The patient is awake and alert. He is nonverbal, but every now and then he will make some noncomprehensive noise. He is able, however, to say yes or no clearly. LABORATORY DATA: WBC 13.51, hemoglobin 9.7, platelet count 138,000. Chemistry is also reviewed. Sodium 129, potassium 3.0, chloride 94. Rest of the chemistry is unremarkable. ABG has been reviewed. PaO2 is 85. This was on the BiPAP. ASSESSMENT: 1. Acute hypoxemic respiratory failure secondary to multifocal pneumonia. The patient seems to be tolerating between the BiPAP and nasal cannula. 2. Bilateral dense infiltrate in both lungs concerning for multifocal pneumonia. The chest x-ray is also suspicious for acute respiratory distress syndrome. Unsure if there is an aspiration component or if this is fluid. We are going to do a CT scan of the chest to have a better anatomy of the lungs. 3. Pulmonary venous congestion associated with bronchospasm, presumably due to the ongoing pneumonia. We will repeat the pro-B, which is minimally elevated. Will get an echocardiogram to rule out any potential left heart disease causing some of these. 4. Lactic acidosis on presentation, improved. 5. Sepsis secondary to pneumonia. 6. History of autism with mental retardation, noted. 7. Electromineral deficiencies, including hypocalcemia, hypophosphatemia, and hypokalemia. Will continue to replace all these. PLAN: In general, I think Mr. Armendariz is fairly stable, but critical. He is still tachypneic and showing a lot of symptoms of respiratory compromise. He seems to be tolerating the BiPAP well. We are going to get a CT scan of the chest to get better delineation of the lung anatomy and also give us some understanding of the lung problems. Will continue keeping Mr. Armendariz here in the [facility] under close monitoring. If his respiratory status get any worse, we will transfer him to the ICU. The nurses have spoken to the brother who is the power of flag signaler, and he is okay for intubation or any BLS or ACLS protocol if it becomes necessary. So, Mr. Armendariz is currently a Full Code. cc: Ja Stern MD
[2018-04-20] MEDS: MAXIPIME 2 GM in NS 100 ML IV SCH (17:17)
[2018-04-20] MEDS: LASIX IV SCH (17:17)
[2018-04-20] MEDS: VANCOMYCIN 2 GM in NS 500 ML IV SCH (18:44)
--- NOTE | 2018-04-20 18:49 | ECHO REPORT ---
ORDER DATE: 04/20/2018 INDICATIONS: Congestive heart failure, atrial fibrillation with rapid ventricular response. FINDINGS: 1. This is an extremely difficult study. The patient was combative during the course of this study. 2. The right atrium appears normal in size at 3.4 cm. 3. Trace tricuspid regurgitation. RV systolic pressure of 38. 4. Normal RV size and systolic function. 5. Trace pulmonic insufficiency. 6. Mild left atrial enlargement at 4.1 cm. 7. No mitral prolapse. Mild mitral regurgitation. 8. Normal LV size, end-diastolic dimension of 5.5 cm. 9. Mild left ventricular hypertrophy with a posterior and interventricular septal wall thickness 1.1 and 1.2 cm respectively. Normal LV systolic function with an estimated EF of 55% to 60% with normal wall motion. 10. Aortic valve opens well. It is trileaflet. No evidence of stenosis or insufficiency. 11. Aorta appears normal in visualized segments. 12. No pericardial effusion seen. cc: MD Ja Tristan MD
[2018-04-20] MEDS: FLOMAX PO SCH (21:05)
[2018-04-20] MEDS: ANAFRANIL PO SCH (21:05)
[2018-04-21] MEDS: DUONEB (A & A) INH SCH ×4 (03:55→23:09)
[2018-04-21] MEDS: MAXIPIME 2 GM in NS 100 ML IV SCH ×2 (04:48→18:05)
[2018-04-21 05:27] LABS: BASO# 0.01 X1000 (0.0-0.2); BASO% 0.1 % (0.0-0.8); EOS# 0.06 X1000 (0.0-0.7); EOS% 0.5 % (0.0-10.0); HEMATOCRIT 29.9 % (42.0-52.0); HEMOGLOBIN 9.9 g/dL (14.0-18.0); IMM GRAN% 0.9 % (0.0-0.5); LYMPH# 1.88 X1000 (1.2-3.4); LYMPH% 16.5 % (20.5-51.1); MCH 30.1 PG (27-31); MCHC 33.1 g/dL (33-37); MCV 90.9 FL (81-99); MPV 10.7 FL (7.4-10.4); NEUT# 8.55 X1000 (1.4-6.5); PLT 166 X1000 (130-400); RBC 3.29 XMIL (4.7-6.1); RDW 12.6 % (11.5-14.5)
[2018-04-21] MEDS: VANCOMYCIN 2 GM in NS 500 ML IV SCH ×2 (05:30→18:54)
[2018-04-21 05:54] LABS: AGAP 11; ALBUMIN 2.8 g/dL (3.5-5.0); BUN 4 mg/dL (8-22); CALCIUM 7.9 mg/dL (8.8-10.2); CHLORIDE 91 mmol/L (98-107); COSMO 260; CREATININE 0.3 mg/dL (0.7-1.2); ESTIMATED GFR > 60; GLUCOSE 104 mg/dL (70-104); PHOSPHORUS 2.6 mg/dL (2.7-4.5); SODIUM 131 mmol/L (136-145); TCO2 29 mmol/L (25-35)
[2018-04-21] MEDS: TYLENOL PO PRN (06:25)
--- NOTE | 2018-04-21 06:25 | Diag Imaging Result Doc PS360 ---
CHEST-PORTABLE - 04/21/2018 INDICATION: dyspnea COMPARISON: 04/20/2018 FINDINGS: There is no change in the heterogeneous, dense alveolar infiltrates bilaterally. Heart size is top normal. No pneumothorax or large pleural effusion. IMPRESSION: No change from prior. Electronically signed by Abram Soliz 04/21/2018 6:22 AM
--- NOTE | 2018-04-21 07:42 | INFECTIOUS DISEASE PROGRESS NO ---
DATE: 04/21/2018 SUBJECTIVE: The patient has bilateral infiltrates, which I think based on his high procalcitonin level of 3.5 is due to pneumonia. There could be a component of pulmonary venous congestion as well. The patient's blood culture for coagulase-negative is a contaminant and does not require treatment. MEDICATIONS: The patient is receiving vancomycin and cefepime. This is day 1 of treatment with both of the antibiotics. OBJECTIVE: Vital Signs: Temperature is 99.2 degrees, pulse 104, respirations 24, blood pressure 140/87. General: This is a somewhat ill-appearing, middle-aged male. He is in no acute distress. Head, Eyes, Ears, Nose, and throat: No drainage noted from the nose or ears. The patient did not talk with me. Neck: No stiffness. Lungs: Clear to auscultation. Cardiovascular: Regular heart rate. Abdomen: Soft and nontender. Neurologic: The patient is awake. He did not follow request to move his extremities. He does not have a tremor. Integument: No rash noted. LAB AND X-RAY: The patient's IgG level at 830 and IgA level at 325 were both normal. Urinary Legionella antigen and urinary pneumococcal antigen are both negative. As mentioned earlier, 1 of 2 blood cultures is growing a coagulase-negative staph which is a contaminant and does not require treatment. Chest x-ray shows bilateral dense alveolar infiltrates. Echocardiogram shows no vegetations. The procalcitonin, as mentioned above, is 3.5. ASSESSMENT AND PLAN: Patient has bilateral pneumonia. There may be a component of pulmonary venous congestion as well. My plan is to continue with vancomycin and cefepime. COMORBIDITIES: He has severe autism, and he lives in a prison. He does not smoke cigarettes. cc: Chito Cornejo MD
[2018-04-21] MEDS ORDERED: POTASSIUM PHOSPHATE 30 MEQ in NS 250 ML IV ONE (08:02)
[2018-04-21] MEDS ORDERED: MAGNESIUM SULFATE 2 GM/S.W.I. 2 GM/50 ML IVPB IV ONE (08:02)
[2018-04-21] MEDS: KLONOPIN PO SCH ×2 (09:24→20:05)
[2018-04-21] MEDS: DEPAKOTE ER PO SCH ×2 (09:24→20:05)
[2018-04-21] MEDS: LASIX IV SCH (09:24)
[2018-04-21] MEDS: RISPERDAL PO SCH ×2 (09:24→20:05)
[2018-04-21] MEDS: PROTONIX IV SCH ×2 (09:24→15:24)
[2018-04-21] MEDS: LOVENOX SUBQ SCH (09:27)
--- NOTE | 2018-04-21 12:15 | Diag Imaging Result Doc PS360 ---
EXAM: BA SWALLOW W/VIDEO SPEECH THER 04/21/2018 HISTORY: aspirations TECHNIQUE: Modified barium swallow, 65 images, 50 seconds fluoroscopy time, two mGy. COMMENT: The patient is able to swallow various consistencies of barium without evidence of aspiration. There is no evidence of cricopharyngeal achalasia. IMPRESSION: No evidence of aspiration. Electronically signed by Giovani Salter 04/21/2018 12:13 PM
--- NOTE | 2018-04-21 16:31 | PULMONOLOGY PROGRESS NOTE ---
DATE: 04/21/2018 SUBJECTIVE: The patient is in restraints. He has been pulling IVs out. He is currently sleeping. He has mild work of breathing. OBJECTIVE: Maximum temperature in the last 24 hours is 99.7 degrees, blood pressure 139/64, heart rate 95, respiratory rate 15, oxygen saturation 98% on nasal cannula. HEENT: Pupils are equal and reactive. Oropharynx appears clear but difficult to examine. Neck is supple. Chest reveals coarse rhonchi bilaterally. Cardiac: S1, S2. Abdomen is soft. Extremities without edema. DIAGNOSTIC DATA: Modified barium swallow this morning reveals no evidence of active aspiration on the study. Chest x-ray reveals bilateral infiltrates. IMPRESSION: A 52 year old with bilateral pneumonia and acute hypoxemic respiratory failure, who lives in a jail. The patient has significant mental retardation, making it difficult to gain additional history. RECOMMENDATIONS: 1. Continue oxygen for hypoxemic respiratory failure which is acute. 2. Continue antibiotics per recommendations of Infectious Disease. 3. Cautious p.o. intake. cc: Mohinder George MD
--- NOTE | 2018-04-21 18:18 | PROGRESS NOTE ---
DATE: 04/21/2018 SUBJECTIVE: This morning Mr. Armendariz seems to be a little bit more alert than days before. Per the nursing staff, no acute changes overnight. OBJECTIVE: Vital signs: Blood pressure 139/64, pulse 94, respiration 15, temperature 98.2 degrees. The patient was saturating 98% on 5 L of nasal cannula. General: Mr. Armendariz is a 52- year-old gentleman. He was in bed. He did not seem to be in any cardiopulmonary distress. HEENT: Mucosa was pink and moist. Anicteric. Acyanotic. Neck: Supple. Respiratory System: There is still diffuse wheezing in both lung fragoso. There are also posterior crepitations. Cardiovascular: Regular rate and rhythm. No murmurs, no rubs, no gallops. Abdomen: Soft, nontender. Bowel sounds present. Extremities: No pedal edema. Distal pulses present. Central nervous system: The patient was awake and alert, still nonverbal. Will move extremities to painful stimulation. LABORATORY DATA: WBC is down to 11.40. Hemoglobin is 9.9, platelet count of 166,000. Chemistry is also reviewed. Sodium is up to 131, potassium 3.0, chloride 91. DIAGNOSTIC STUDIES: A chest x-ray this morning showed no change. Dense alveolar infiltrates bilateral. A swallow/speech therapy evaluation showed no evidence of aspiration. CURRENT MEDICATIONS: Cefepime 2 g q.12, vancomycin per pharmacy protocol. ASSESSMENT: 1. Acute hypoxemic respiratory failure secondary to multifocal pneumonia, improving. 2. Bilateral dense infiltrate in both lungs concerning for multifocal pneumonia. Patient's procalcitonin is elevated. Swallow barium evaluation has ruled out aspiration. 3. Pulmonary venous congestion with bronchospasm secondary to ongoing pneumonia. Echocardiogram shows an ejection fraction of 55% to 60% with normal wall motion and the valves are unremarkable. 4. Sepsis secondary to pneumonia, improving. 5. History of autism with mental retardation, noted. 6. Electrolyte abnormalities. Will continue to replace. cc: Ja Stern MD
[2018-04-21] MEDS: NEUTRA-PHOS PO SCH ×2 (18:29→20:05)
[2018-04-21] MEDS: ANAFRANIL PO SCH (20:05)
[2018-04-21] MEDS: MAG-OX PO SCH (20:05)
[2018-04-21] MEDS: FLOMAX PO SCH (20:05)
[2018-04-22] MEDS: DUONEB (A & A) INH SCH ×4 (03:30→19:30)
[2018-04-22] MEDS: MAXIPIME 2 GM in NS 100 ML IV SCH ×2 (05:17→16:47)
[2018-04-22] MEDS: VANCOMYCIN 2 GM in NS 500 ML IV SCH ×2 (05:17→19:10)
[2018-04-22 05:36] LABS: BASO# 0.02 X1000 (0.0-0.2); BASO% 0.2 % (0.0-0.8); EOS# 0.15 X1000 (0.0-0.7); EOS% 1.5 % (0.0-10.0); HEMATOCRIT 31.5 % (42.0-52.0); HEMOGLOBIN 10.3 g/dL (14.0-18.0); IMM GRAN# 0.13 X1000 (0.0-0.04); IMM GRAN% 1.3 % (0.0-0.5); LYMPH# 2.06 X1000 (1.2-3.4); LYMPH% 21.2 % (20.5-51.1); MCH 29.9 PG (27-31); MCHC 32.7 g/dL (33-37); MCV 91.3 FL (81-99); MONO# 1.13 X1000 (0.11-0.59); MONO% 11.6 % (1.7-9.3); MPV 10.1 FL (7.4-10.4); NEUT# 6.22 X1000 (1.4-6.5); NEUT% 64.2 % (42.2-75.2); PLT 176 X1000 (130-400); RBC 3.45 XMIL (4.7-6.1); RDW 12.7 % (11.5-14.5); WBC 9.71 X1000 (4.8-10.8)
[2018-04-22 06:00] LABS: AGAP 10; ALBUMIN 2.7 g/dL (3.5-5.0); BUN 4 mg/dL (8-22); CALCIUM 8.2 mg/dL (8.8-10.2); CHLORIDE 90 mmol/L (98-107); COSMO 259; CREATININE 0.4 mg/dL (0.7-1.2); ESTIMATED GFR > 60; GLUCOSE 97 mg/dL (70-104); PHOSPHORUS 3.1 mg/dL (2.7-4.5); POTASSIUM 3.2 mmol/L (3.5-5.1); SODIUM 131 mmol/L (136-145); TCO2 31 mmol/L (25-35)
[2018-04-22] MEDS ORDERED: KLOR-CON PO ONE (06:17)
[2018-04-22] MEDS: NEUTRA-PHOS PO SCH ×4 (09:04→20:55)
[2018-04-22] MEDS: KLONOPIN PO SCH ×2 (09:05→20:55)
[2018-04-22] MEDS: MAG-OX PO SCH ×2 (09:05→20:55)
[2018-04-22] MEDS: DEPAKOTE ER PO SCH ×2 (09:06→20:55)
[2018-04-22] MEDS: RISPERDAL PO SCH ×2 (09:07→20:56)
[2018-04-22] MEDS: LASIX IV SCH (09:08)
[2018-04-22] MEDS: PROTONIX IV SCH ×2 (09:08→10:39)
[2018-04-22] MEDS: LOVENOX SUBQ SCH (09:08)
--- NOTE | 2018-04-22 13:15 | PROGRESS NOTE ---
DATE: 04/22/2018 SUBJECTIVE: This morning, Mr. Armendariz seems to be fairly stable. No new complaints. OBJECTIVE: Vital signs: Blood pressure is 128/57, pulse is 102, respirations 19, temperature 97.9. General: Mr. Armendariz is a 52-year-old, male. He was in bed. Not seemingly distressed. HEENT: Mucosa is pink and moist. Anicteric. Acyanotic. Neck: Supple. Chest: Air entry is bilaterally reduced. There is still diffuse wheezing in both lung fragoso. Cardiovascular: Regular rate and rhythm. No murmurs, no rubs, no gallops. Abdomen: Soft, nontender. There is no hepatosplenomegaly. Extremities: No pedal edema. Distal pulses present. SENIOR MEDIA PLANNER: Patient is awake, alert, nonverbal. Moves all extremities. LABORATORY DATA: WBC is 9.71, hemoglobin is 10.3, platelet count of 176. Chemistry is also reviewed. Unremarkable except for sodium of 131. So far, blood culture one is positive for coag- negative staph. Rest of cultures have all been negative. ASSESSMENT: 1. Acute hypoxemic respiratory failure secondary to multifocal pneumonia. Patient continues to be on nasal cannula oxygenation. 2. Bilateral dense infiltrate in both lungs, concerning for multifocal pneumonia. The patient has elevated procalcitonin level. Barium swallow rules out any aspiration. We think this is bacterial pneumonia. He is currently on cefepime and vancomycin. 3. Sepsis on presentation secondary to pneumonia. 4. Electrolyte abnormality. We will continue to replace the potassium. 5. History of autism with mental retardation noted. So, in general, I think Mr. Armendariz is fairly stable, still needing 5 L via nasal cannula to saturate adequately. He continues to be remarkably symptomatic from respiratory standpoint. We are going to continue with the current antibiotics. He is also getting some diuretics to help with the pulmonary congestion. cc: Ja Stern MD
--- NOTE | 2018-04-22 16:51 | PULMONOLOGY PROGRESS NOTE ---
DATE: 04/22/2018 SUBJECTIVE: The patient is awake. He is nonverbal and will not follow commands. His work of breathing is less than yesterday. The sitter at the bedside reports he is not having any difficulty with swallowing but does have to be reminded to swallow. OBJECTIVE: Vital Signs: The patient has been afebrile for the last 24 hours. Blood pressure is 128/57, heart rate 102, respiratory rate 19, oxygen saturation 100% on nasal cannula at 5 liters. HEENT: Pupils are equal and reactive. Oropharynx is clear. Neck: Supple. Chest: Reveals occasional rhonchi bilaterally. Cardiac: S1 and S2. Abdomen: Soft. Extremities: Without edema. LABORATORY DATA: White blood count has normalized at 9.71. Hemoglobin is 10.3, platelet count 176,000. Sodium is 131, potassium 3.2, chloride 90, bicarbonate 31, BUN 4, creatinine 0.4. No new microbiology data. IMPRESSION: A 52-year-old with bilateral pneumonia and acute hypoxemic respiratory failure. Clinically he appears to be improving. His oxygen saturations have improved. RECOMMENDATIONS: 1. Continue current antibiotic regimen. 2. Continue oxygen and wean as tolerated. 3. Followup chest x-ray tomorrow. cc: Mohinder George MD
[2018-04-22] MEDS: ANAFRANIL PO SCH (20:55)
[2018-04-22] MEDS: FLOMAX PO SCH (20:56)
[2018-04-22] MEDS: ZYPREXA IM PRN (23:41)
[2018-04-23] MEDS: VANCOMYCIN 2 GM in NS 500 ML IV SCH ×2 (03:11→14:52)
[2018-04-23] MEDS: DUONEB (A & A) INH SCH ×5 (03:24→19:05)
[2018-04-23] MEDS: MAXIPIME 2 GM in NS 100 ML IV SCH ×2 (05:26→17:14)
[2018-04-23 06:00] LABS: AGAP 8; BUN 4 mg/dL (8-22); CALCIUM 7.4 mg/dL (8.8-10.2); CHLORIDE 90 mmol/L (98-107); COSMO 256; CREATININE 0.4 mg/dL (0.7-1.2); ESTIMATED GFR > 60; GLUCOSE 94 mg/dL (70-104); MAGNESIUM 1.9 mg/dL (1.5-2.7); PHOSPHORUS 3.1 mg/dL (2.7-4.5); POTASSIUM 3.5 mmol/L (3.5-5.1); SODIUM 129 mmol/L (136-145); TCO2 31 mmol/L (25-35)
[2018-04-23 06:09] LABS: BASO# 0.02 X1000 (0.0-0.2); BASO% 0.2 % (0.0-0.8); EOS# 0.23 X1000 (0.0-0.7); EOS% 2.3 % (0.0-10.0); HEMATOCRIT 27.4 % (42.0-52.0); IMM GRAN# 0.18 X1000 (0.0-0.04); IMM GRAN% 1.8 % (0.0-0.5); LYMPH# 2.39 X1000 (1.2-3.4); LYMPH% 23.5 % (20.5-51.1); MCH 30.2 PG (27-31); MCHC 32.8 g/dL (33-37); MCV 91.9 FL (81-99); MONO# 1.41 X1000 (0.11-0.59); MONO% 13.9 % (1.7-9.3); MPV 9.7 FL (7.4-10.4); NEUT# 5.92 X1000 (1.4-6.5); NEUT% 58.3 % (42.2-75.2); PLT 182 X1000 (130-400); RBC 2.98 XMIL (4.7-6.1); RDW 12.8 % (11.5-14.5); WBC 10.15 X1000 (4.8-10.8)
--- NOTE | 2018-04-23 07:54 | Diag Imaging Result Doc PS360 ---
EXAM: CHEST-PORTABLE INDICATION: abnormal exam TECHNIQUE: One view COMPARISON: 04/21/2018 FINDINGS: There are persistent dense airspace consolidations bilaterally, worse on the left. There may have been marginal improvement on the right. No new consolidation is identified. Cardiac silhouette is stable. IMPRESSION: Marginal improvement on the right as described. Stable chest, otherwise. Electronically signed by Valentin Nichols 04/23/2018 7:52 AM
[2018-04-23] MEDS: MAG-OX PO SCH ×2 (08:48→20:23)
[2018-04-23] MEDS: KLONOPIN PO SCH ×2 (08:48→20:24)
[2018-04-23] MEDS: NEUTRA-PHOS PO SCH ×4 (08:48→20:23)
[2018-04-23] MEDS: RISPERDAL PO SCH ×2 (08:49→20:23)
[2018-04-23] MEDS: LASIX IV SCH (08:49)
[2018-04-23] MEDS: LOVENOX SUBQ SCH (08:49)
[2018-04-23] MEDS: DEPAKOTE ER PO SCH ×2 (08:49→20:24)
[2018-04-23] MEDS: SODIUM CHLORIDE 0.9% INJ SCH ×2 (08:49→08:50)
[2018-04-23] MEDS: PROTONIX IV SCH (08:50)
--- NOTE | 2018-04-23 14:17 | PROGRESS NOTE ---
DATE: 04/23/2018 SUBJECTIVE: This morning, Mr. Armendariz continues to be fairly stable. No new complaints. There was a sitter at the bedside at the time of the encounter. OBJECTIVE: Vital Signs: Blood pressure is 124/63, pulse is 103, respirations 18, temperature 98.3. The patient was saturating about 93% on 2 L. General: Mr. Armendariz is a 52-year-old gentleman. He was in bed. He did not seem to be in cardiopulmonary distress. HEENT: Mucosa was pink and moist. Respiratory: Air entry is bilaterally reduced. There is still some diffuse wheezing in both lung fragoso. There are some crackles posteriorly as well. Cardiovascular: Minimally tachycardic, but no murmurs, no rubs, no gallops. GI: Abdomen is soft. Bowel sounds are present. There is no hepatosplenomegaly. Extremities: No pedal edema. Distal pulses present. DROP FORGER: Patient is awake, alert, nonverbal, and moves extremities. LABORATORY DATA: WBC is 10.15, hemoglobin is 9.0, platelet count of 182,000. Chemistry is also reviewed. Potassium is 1.29. The rest of the chemistry is unremarkable. A chest x-ray this morning shows marginal improvement on the right. ASSESSMENT AND PLAN: 1. Acute hypoxemic respiratory failure secondary to multifocal pneumonia. 2. Bilateral dense lung infiltrates, concerning for multifocal pneumonia. The patient has remarkably elevated procalcitonin. Barium swallow rules out any aspiration. We think this is bacterial pneumonia. He is currently on cefepime and vancomycin. White cell count is normalized, and chest x-ray shows marginal improvement. 3. Sepsis on presentation, secondary to pneumonia. 4. Hypokalemia, improving. 5. History of autism, with mental retardation noted. The [facility] is a [facility] of a [facility]. In general, Mr. Armendariz is fairly stable. He is tolerating all his diet. There was no aspiration on the swallow evaluation. Clinically, he seems to be improving. We are going to continue with the current antibiotic coverage. The patient is also being seen by ID and Pulmonary Medicine. cc: Ja Stern MD
[2018-04-23] MEDS ORDERED: STERILE WATER INJ. INJ ONE (15:15)
[2018-04-23] MEDS: ZYPREXA IM PRN ×2 (15:34→23:19)
--- NOTE | 2018-04-23 19:23 | PULMONOLOGY PROGRESS NOTE ---
DATE: 04/23/2018 SUBJECTIVE: The patient is awake and alert. He will not follow commands. He is lying flat. When his bed is elevated he will push the button to lie flat again. OBJECTIVE: Vital Signs: The patient has been afebrile for the last 24 hours. Blood pressure is 123/74, heart rate 105, respiratory rate 18, oxygen saturation 97% on nasal cannula at 3 liters. HEENT: Pupils are equal and reactive. Oropharynx is clear. Neck: Supple. Chest: Reveals posterior crackles with scattered rhonchi. Cardiac: S1 and S2. Abdomen: Soft. Extremities: Reveal trace edema. LABORATORY DATA: White blood count 10.15. Hemoglobin is 9.0, platelet count 182,000. Sodium is 129, potassium 3.5, chloride 90, bicarbonate 31, BUN 4, creatinine 0.4. IMPRESSION: A 52-year-old with mental retardation, bilateral pneumonia, acute hypoxemic respiratory failure, with marginal improvement in clinical exam. RECOMMENDATIONS: 1. Continue current antibiotics. 2. Encourage the sitters and nursing staff to keep patient elevated at 30 degrees to prevent re- aspiration. 3. Wean oxygen as tolerated. cc: Mohinder George MD
[2018-04-23] MEDS: FLOMAX PO SCH (20:23)
[2018-04-23] MEDS: ANAFRANIL PO SCH (20:24)
[2018-04-23] MEDS ORDERED: STERILE WATER INJ. ONE (23:21)
[2018-04-24] MEDS: VANCOMYCIN 2 GM in NS 500 ML IV SCH ×2 (02:46→15:15)
[2018-04-24] MEDS: DUONEB (A & A) INH SCH ×7 (03:00→22:48)
[2018-04-24] MEDS: MAXIPIME 2 GM in NS 100 ML IV SCH ×2 (04:11→17:31)
[2018-04-24 05:26] LABS: BASO# 0.02 X1000 (0.0-0.2); BASO% 0.2 % (0.0-0.8); EOS# 0.37 X1000 (0.0-0.7); EOS% 4.2 % (0.0-10.0); HEMATOCRIT 28.4 % (42.0-52.0); HEMOGLOBIN 9.3 g/dL (14.0-18.0); IMM GRAN% 2.3 % (0.0-0.5); LYMPH# 2.52 X1000 (1.2-3.4); LYMPH% 28.6 % (20.5-51.1); MCH 30.3 PG (27-31); MCHC 32.7 g/dL (33-37); MCV 92.5 FL (81-99); MONO# 1.38 X1000 (0.11-0.59); MONO% 15.7 % (1.7-9.3); MPV 9.6 FL (7.4-10.4); NEUT# 4.32 X1000 (1.4-6.5); PLT 217 X1000 (130-400); RBC 3.07 XMIL (4.7-6.1); RDW 12.9 % (11.5-14.5); WBC 8.81 X1000 (4.8-10.8)
[2018-04-24] MEDS ORDERED: DUONEB (A & A) INH PRN (05:36)
[2018-04-24 06:40] LABS: AGAP 8; ALBUMIN 2.7 g/dL (3.5-5.0); BUN 6 mg/dL (8-22); CALCIUM 8.3 mg/dL (8.8-10.2); CHLORIDE 95 mmol/L (98-107); COSMO 266; CREATININE 0.5 mg/dL (0.7-1.2); ESTIMATED GFR > 60; GLUCOSE 98 mg/dL (70-104); POTASSIUM 4.2 mmol/L (3.5-5.1); SODIUM 134 mmol/L (136-145); TCO2 31 mmol/L (25-35)
--- NOTE | 2018-04-24 06:58 | INFECTIOUS DISEASE PROGRESS NO ---
DATE: 04/24/2018 PRESENT ILLNESS: Patient has a bilateral pneumonia. MEDICATIONS: The patient has been on vancomycin and cefepime now for 6 days. PHYSICAL EXAMINATION: Vital Signs: Temperature is 97.7 degrees, pulse is 98, respirations 19, blood pressure 113/51. General: This is a somewhat ill-appearing, middle-aged male. He is in no acute distress. Head/eyes/ears/nose/throat: No drainage noted from the nose or ears. Neck: There was no stiffness. Lungs: Clear to auscultation. Cardiovascular: Heart rate is regular. Abdomen: Soft and apparently not tender. Neurologic: The patient was lying in a position and his eyes were closed. He did not respond to verbal stimuli. There was no tremor. LAB AND X-RAY: Chest x-ray shows slight improvement in the pulmonary consolidation. 1 of 2 blood cultures is growing a coagulase-negative Staph. This is a contaminant and does not need to be treated. Creatinine 0.4, GFR is greater than 60. CBC shows a white count of 8810, hemoglobin 9.3, and platelet count 219,000. ASSESSMENT AND PLAN: The patient has a bilateral pneumonia. I plan to continue his current antibiotics namely cefepime and vancomycin. The patient did have 1 of 2 blood cultures positive for a coagulase-negative Staph. I think this is a contaminant and does not require treatment. COMORBIDITIES: He has severe autism and he lives in a [facility]. cc: Chito Cornejo MD
--- NOTE | 2018-04-24 07:24 | Diag Imaging Result Doc PS360 ---
EXAM: CHEST-PORTABLE 04/24/2018 HISTORY: dyspnea TECHNIQUE: AP portable at 0615 COMMENT: There is hazy pulmonary edema bilaterally. There has been some slight improvement since the previous study of 04/23/2018. IMPRESSION: Improved pulmonary edema. Electronically signed by Giovani Salter 04/24/2018 7:22 AM
--- NOTE | 2018-04-24 09:20 | PROGRESS NOTE ---
DATE: 04/24/2018 SUBJECTIVE: This morning Mr. Armendariz continues to be stable, no seizure. The night was uneventful. OBJECTIVE: Vital Signs: Blood pressure is 130/60, pulse is 111, respirations 22, temperature is 98.7. The patient was saturating about 94% to 92% on 3 L. General: Mr. Armendariz is a 52-year-old gentleman. He was in bed, no distress. HEENT: Mucosa is pink and moist. Anicteric. Acyanotic. Neck: Supple. Respiratory: Air entry was bilaterally reduced. There is still end expiratory wheezing and crackles posteriorly. Cardiovascular: Minimally tachycardic, but no murmurs, no rubs, no gallops. Gastrointestinal: Abdomen was soft. No hepatosplenomegaly. Extremities: No pedal edema. Distal pulses are present. Central Nervous System: Patient is awake, alert. Continues to be nonverbal. Moves all extremities. LABORATORY DATA: WBC is 8.81, hemoglobin is 9.3, platelet count of 217,000. Chemistry is also reviewed. Sodium is 134, potassium 4.3, chloride 95, bicarb is 21. So far, blood cultures have been unremarkable. Only 1 was coag-negative which we thought it is contamination. A repeat chest x-ray this morning shows improved pulmonary edema. CURRENT MEDICATIONS: Include: 1. Nebulizations. 2. Cefepime 2 g q.12 today. Is day 4 on that. 3. Anafranil 50 mg p.o. at bedtime. 4. Klonopin 0.5 b.i.d. 5. Depakote 250 b.i.d. 6. Lovenox for DVT prophylaxis. 7. Vancomycin per pharmacy protocol. 8. Zyprexa 2.5 p.r.n. 9. Protonix 40 mg IV q. 24. 10. Risperdal 0.5 p.o. b.i.d. 11. Tamsulosin 0.4 p.o. at bedtime. ASSESSMENT: 1. Acute hypoxemic respiratory failure on presentation secondary to multifocal pneumonia. The patient continues to be needing oxygen. This is being titrated as needed. 2. Bilateral dense lung infiltrates concerning for multifocal pneumonia. Procalcitonin was elevated. Barium swallow was negative for any aspiration. We think this is bacterial pneumonia. He is currently on cefepime and vancomycin. ID and Pulmonary Medicine are on board. 3. Sepsis on presentation secondary to pneumonia, improving. 4. History of autism with mental retardation noted. The patient is a resident of a care home and he is on a lot of psychotropic medications which he continues here. 5. Hypokalemia, resolved. 6. Noncardiogenic pulmonary edema. X-ray shows improvement in the pulmonary edema. Patient was on Lasix for the past 3 days. This has been discontinued. PLAN: So, in general, Mr. Armendariz is a 52-year-old autistic and mentally challenged male who is a resident of a care home. Presented to the emergency department on 04/18/2018 because of acute onset of shortness of breath. Patient was found to be in acute hypoxemic respiratory failure, was admitted to the [facility]. Initially, he was on BiPAP for a couple days and his oxygen level continues to improve. He is currently on IV antibiotics and he is being seen by both ID and Pulmonary Medicine. He continues to show improvement. His disposition is going to depend on the rest of the hospital course. cc: Ja Stern MD MTDD
[2018-04-24] MEDS: SODIUM CHLORIDE 0.9% INJ SCH (09:34)
[2018-04-24] MEDS: MAG-OX PO SCH ×2 (09:34→20:49)
[2018-04-24] MEDS: DEPAKOTE ER PO SCH ×2 (09:34→20:49)
[2018-04-24] MEDS: PROTONIX IV SCH (09:34)
[2018-04-24] MEDS: LOVENOX SUBQ SCH (09:34)
[2018-04-24] MEDS: RISPERDAL PO SCH ×2 (09:34→20:49)
[2018-04-24] MEDS: KLONOPIN PO SCH ×2 (09:34→20:50)
[2018-04-24] MEDS: NEUTRA-PHOS PO SCH ×4 (09:35→20:49)
[2018-04-24] MEDS: STERILE WATER INJ. INJ PRN ×2 (14:46→23:59)
[2018-04-24] MEDS: ZYPREXA IM PRN ×2 (14:47→23:59)
--- NOTE | 2018-04-24 16:58 | PULMONOLOGY PROGRESS NOTE ---
DATE: 04/24/2018 SUBJECTIVE: The patient is continues to pull his IVs out. He is awake and alert and continues to request to be let go. OBJECTIVE: The patient has been afebrile for the last 24 hours. Blood pressure 130/60. Heart rate 111. Respiratory rate 22. Oxygen saturation 99% on 3 liters per nasal cannula. HEENT: Pupils are equal and reactive. Oropharynx is clear. Neck is supple. Chest reveals occasional rhonchi bilaterally without wheezing or rhonchi Cardiac exam: S1, S2. Abdomen: Soft without hepatosplenomegaly. Extremities: Without edema. LABORATORY: White blood count 8.81, hemoglobin 9.3, platelet count 217,000. Sodium 134, potassium 4.2, chloride 95, bicarbonate 31, BUN 6, creatinine 0.5. Chest x-ray reveals continued improvement in bilateral infiltrates. IMPRESSION: A 52-year-old mentally challenged patient with bilateral pneumonia with acute hypoxemic respiratory failure with slow, persistent improvement. RECOMMENDATIONS: 1. Continue antibiotics. 2. Wean oxygen as tolerated. 3. Attempt to keep the patient elevated with his head higher than his abdomen to prevent reflux and aspiration. cc: Mohinder George MD
[2018-04-24] MEDS: ANAFRANIL PO SCH (20:49)
[2018-04-24] MEDS: FLOMAX PO SCH (20:49)
[2018-04-25] MEDS: VANCOMYCIN 2 GM in NS 500 ML IV SCH ×2 (03:09→17:25)
[2018-04-25] MEDS: DUONEB (A & A) INH SCH ×6 (03:56→23:40)
[2018-04-25] MEDS: MAXIPIME 2 GM in NS 100 ML IV SCH ×2 (06:31→20:44)
[2018-04-25] MEDS: RISPERDAL PO SCH ×2 (08:26→20:43)
[2018-04-25] MEDS: NEUTRA-PHOS PO SCH ×4 (08:26→20:44)
[2018-04-25] MEDS: MAG-OX PO SCH ×2 (08:26→20:44)
[2018-04-25] MEDS: KLONOPIN PO SCH ×2 (08:27→20:44)
[2018-04-25] MEDS: PROTONIX IV SCH (08:29)
[2018-04-25] MEDS: DEPAKOTE ER PO SCH ×2 (08:29→20:44)
[2018-04-25] MEDS: LOVENOX SUBQ SCH (08:31)
[2018-04-25] MEDS: ZYPREXA IM PRN (10:10)
[2018-04-25] MEDS ORDERED: GEODON IM ONE (13:32)
[2018-04-25] MEDS ORDERED: STERILE WATER INJ. INJ ONE (13:32)
--- NOTE | 2018-04-25 15:04 | PROGRESS NOTE ---
DATE: 04/25/2018 SUBJECTIVE: He is awake and he has been combative. OBJECTIVE: Vital Signs: As follows: Temperature 98.9, pulse 115, respiratory rate [*], blood pressure 166/87, oxygen is 97%. HEENT: Atraumatic, normocephalic. Cardiovascular: S1, S2. Respiratory: Has evidence of good air entry bilaterally. Abdomen: Soft, nontender. No masses felt. Extremities: No evidence of edema. Central Nervous System: The patient is awake, with no obvious focal deficits noted. LABS: None. ASSESSMENT AND PLAN: 1. Acute hypoxic respiratory failure on presentation secondary to multifocal pneumonia. Maintain patient on oxygen, keep sats above 90. 2. Pneumonia. Continue current antibiotic regimen. ID managing antibiotics. 3. History of autism/mental retardation with behavioral abnormalities. Use antipsychotic for agitation. 4. Pulmonary edema. Monitor intakes and outputs and also daily weights. Use diuretics if needed. The patient's 2D echo of the heart shows normal LV systolic function with estimated ejection fraction of about 55% to 60% with normal wall motion. 5. DVT prophylaxis. Lovenox. 6. GI prophylaxis. PPI. 7. Disposition: Patient will be going back to the intermediate when ready for discharge. cc: Rohit Shelby MD
--- NOTE | 2018-04-25 16:04 | INFECTIOUS DISEASE PROGRESS NO ---
DATE: 04/25/2018 PRESENT ILLNESS: The patient has an improving bilateral pneumonia. MEDICATIONS: This is the 7th day of treatment with vancomycin and cefepime. PHYSICAL EXAMINATION: Vital Signs: Temperature is 99 degrees, pulse 112, respirations 18, blood pressure 145/73. General: This is an ill-appearing, middle-aged male. He is in no acute distress. Head/eyes/ears/nose/throat: No drainage is noted from the nose or ears. The patient did not speak when I asked him to. Neck: No meningismus. Lungs: Clear to auscultation. Cardiovascular: The heart rate is regular. Abdomen: Soft and nontender. It is somewhat protuberant. Neurologic: The patient is lying in bed. He has restraints on. There is no tremor. The patient did not respond to verbal stimuli. LAB AND X-RAY: There is no new radiographic study. CBC shows a white count of 8810, hemoglobin 9.3, and platelet count 217,000. Creatinine 0.5, GFR is greater than 60. ASSESSMENT AND PLAN: Patient has a bilateral pneumonia. My plan is to continue the current antibiotics. COMORBIDITIES: The patient has severe autism and lives in a alf. cc: Chito Cornejo MD
[2018-04-25] MEDS: ANAFRANIL PO SCH (20:43)
[2018-04-25] MEDS: FLOMAX PO SCH (20:44)
--- NOTE | 2018-04-25 20:50 | PULMONOLOGY PROGRESS NOTE ---
DATE: 04/25/2018 SUBJECTIVE: The patient is lying in his bed in restraints. He is currently lying in Trendelenburg. His sitter reports he continues to adjust the bed. He is without specific complaints. OBJECTIVE: Vital Signs: The patient has been afebrile for the last 24 hours. Blood pressure is 151/73, heart rate 102, respiratory rate 20, oxygen saturation 94% on room air. HEENT: Pupils are equal and reactive. Oropharynx is clear. Neck: Supple. Chest: Reveals occasional rhonchi bilaterally, but significantly improved over the last 48 hours. Cardiac: S1 and S2. Abdomen: Soft without hepatosplenomegaly. Extremities: Without edema. LABORATORIES: No new laboratory data. IMPRESSION: A 52-year-old mentally challenged patient with bilateral pneumonia with acute hypoxemic respiratory failure. The patient continues to improve. RECOMMENDATIONS: 1. Continue current antibiotic regimen. 2. Followup chemistries and chest x-ray tomorrow morning. cc: Mohinder George MD
[2018-04-25] MEDS ORDERED: HALDOL IM ONE (20:57)
[2018-04-26] MEDS: DUONEB (A & A) INH SCH ×6 (03:45→23:35)
[2018-04-26] MEDS ORDERED: HALDOL IM ONE (04:12)
[2018-04-26] MEDS ORDERED: HALDOL IM PRN (04:31)
[2018-04-26] MEDS: VANCOMYCIN 2 GM in NS 500 ML IV SCH (05:09)
--- NOTE | 2018-04-26 07:25 | Diag Imaging Result Doc PS360 ---
EXAM: CHEST-PORTABLE 04/26/2018 HISTORY: abnormal exam TECHNIQUE: AP portable at 0635 COMMENT: There is ill-defined opacity present throughout both lungs particularly the left parahilar region. There has been some improvement compared to 04/24/2018. IMPRESSION: Slightly improved pulmonary edema. Electronically signed by Giovani Salter 04/26/2018 7:22 AM
[2018-04-26] MEDS ORDERED: GEODON IM PRN (13:54)
--- NOTE | 2018-04-26 14:11 | PROGRESS NOTE ---
DATE: 04/26/2018 SUBJECTIVE: The patient is awake and was combative earlier this morning. He had to be given [*]to chemically restrain him. OBJECTIVE: Vital Signs: Temperature 98.5 degrees, pulse 107, respiratory rate 20, blood pressure 151/66, oxygen saturation 91%. HEENT: Atraumatic, normocephalic. Cardiovascular: S1, S2. Respiratory system: Evidence of good air entry bilaterally. Abdomen: Soft, nontender. No masses felt. Extremities: No evidence of edema. Central nervous system: No obvious focal deficit noted. LABORATORY DATA: None. ASSESSMENT AND PLAN: 1. Multifocal pneumonia. Continue antibiotics per Infectious Disease recommendations. 2. History of autism with behavioral abnormalities. Will use antipsychotics on a p.r.n. basis for agitation. 3. Pulmonary edema. Monitor intakes and outputs, as well as daily weights. Use diuretics as needed. 4. Deep vein thrombosis prophylaxis. Lovenox. 5. Gastrointestinal prophylaxis. Proton pump inhibitor. 6. Disposition. Will discontinue back to the [facility] when the patient is medically stable. cc: Rohit Shelby MD
[2018-04-26] MEDS: GEODON IM PRN ×2 (14:35→20:23)
[2018-04-26] MEDS: SODIUM CHLORIDE 0.9% INJ SCH (14:36)
[2018-04-26] MEDS: STERILE WATER INJ. INJ PRN ×2 (14:36→20:24)
[2018-04-26] MEDS: PROTONIX IV SCH (14:36)
[2018-04-26] MEDS: MAXIPIME 2 GM in NS 100 ML IV SCH (14:36)
[2018-04-26] MEDS: KLONOPIN PO SCH ×2 (14:37→20:13)
[2018-04-26] MEDS: RISPERDAL PO SCH ×2 (14:37→20:13)
[2018-04-26] MEDS: NEUTRA-PHOS PO SCH ×4 (14:37→20:14)
[2018-04-26] MEDS: MAG-OX PO SCH ×2 (14:38→20:13)
[2018-04-26] MEDS: LOVENOX SUBQ SCH (14:38)
[2018-04-26] MEDS: DEPAKOTE ER PO SCH ×2 (14:38→20:24)
--- NOTE | 2018-04-26 15:00 | INFECTIOUS DISEASE PROGRESS NO ---
DATE: 04/26/2018 PRESENT ILLNESS: The patient has improving bilateral pneumonia. MEDICATIONS: The patient has been on vancomycin and cefepime now for 8 days. PHYSICAL EXAMINATION: Vital Signs: Temperature is 98.5 degrees, pulse 107, respirations 20, blood pressure 151/66. General: This is an ill-appearing, middle-aged male. He is in no acute distress. Head, eyes, ears, nose and throat: I did not notice any drainage from his nose or ears. Patient did not open his mouth when I asked him to. Neck: No stiffness. Lungs: Clear to auscultation. Cardiovascular: The heart rate is regular. Abdomen: Soft and nontender. It is somewhat protuberant, but it has apparently been that way for quite awhile. Neurologic: He is awake and he is able to move his extremities, but he does not do it to request. There is no tremor. LAB AND X-RAY: Chest x-ray continues to show improvement in the bilateral infiltrates. There is no laboratory tests done for today. ASSESSMENT AND PLAN: Patient has a bilateral pneumonia. I plan to continue vancomycin and cefepime. COMORBIDITIES: The patient has severe autism and he lives in a [facility]. cc: Chito Cornejo MD
[2018-04-26] MEDS: FLOMAX PO SCH (20:13)
[2018-04-26] MEDS: ANAFRANIL PO SCH (20:24)
[2018-04-27] MEDS: MAXIPIME 2 GM in NS 100 ML IV SCH ×2 (02:07→14:35)
[2018-04-27] MEDS: GEODON IM PRN ×3 (03:56→14:32)
[2018-04-27] MEDS: STERILE WATER INJ. INJ PRN (03:57)
[2018-04-27 05:49] LABS: BASO# 0.02 X1000 (0.0-0.2); BASO% 0.2 % (0.0-0.8); EOS# 0.14 X1000 (0.0-0.7); EOS% 1.4 % (0.0-10.0); HEMATOCRIT 29.4 % (42.0-52.0); HEMOGLOBIN 9.5 g/dL (14.0-18.0); IMM GRAN# 0.12 X1000 (0.0-0.04); IMM GRAN% 1.2 % (0.0-0.5); LYMPH# 2.15 X1000 (1.2-3.4); LYMPH% 21.8 % (20.5-51.1); MCH 29.8 PG (27-31); MCHC 32.3 g/dL (33-37); MCV 92.2 FL (81-99); MONO# 1.13 X1000 (0.11-0.59); MONO% 11.5 % (1.7-9.3); MPV 9.3 FL (7.4-10.4); NEUT% 63.9 % (42.2-75.2); PLT 247 X1000 (130-400); RBC 3.19 XMIL (4.7-6.1); RDW 13.5 % (11.5-14.5); WBC 9.86 X1000 (4.8-10.8)
[2018-04-27 06:06] LABS: AGAP 11; BUN 11 mg/dL (8-22); CALCIUM 8.4 mg/dL (8.8-10.2); CHLORIDE 95 mmol/L (98-107); COSMO 270; CREATININE 0.5 mg/dL (0.7-1.2); ESTIMATED GFR > 60; GLUCOSE 99 mg/dL (70-104); POTASSIUM 4.2 mmol/L (3.5-5.1); SODIUM 135 mmol/L (136-145); TCO2 29 mmol/L (25-35)
[2018-04-27] MEDS: DUONEB (A & A) INH SCH ×6 (06:10→22:56)
--- NOTE | 2018-04-27 06:54 | Diag Imaging Result Doc PS360 ---
EXAM: CHEST-1 VIEW HISTORY: pneumonia TECHNIQUE: Portable chest, single view COMPARISON: 04/26/2018 FINDINGS: Poor inspiratory effort. The heart is borderline mildly prominent and there is mild vascular distention. No consolidation. No pleural effusions identified. IMPRESSION: No interval improvement. Electronically signed by Arya Padron 04/27/2018 6:51 AM
[2018-04-27] MEDS: PROTONIX IV SCH (08:32)
[2018-04-27] MEDS: LOVENOX SUBQ SCH (08:33)
[2018-04-27] MEDS: SODIUM CHLORIDE 0.9% INJ SCH (08:33)
[2018-04-27] MEDS: MAG-OX PO SCH ×2 (08:33→21:48)
[2018-04-27] MEDS: DEPAKOTE ER PO SCH ×2 (08:33→21:48)
[2018-04-27] MEDS: RISPERDAL PO SCH ×2 (08:33→21:48)
[2018-04-27] MEDS: KLONOPIN PO SCH ×2 (08:34→21:51)
[2018-04-27] MEDS: NEUTRA-PHOS PO SCH ×4 (08:34→21:47)
[2018-04-27] MEDS: VANCOMYCIN 2 GM in NS 500 ML IV SCH (11:30)
--- NOTE | 2018-04-27 14:45 | PROGRESS NOTE ---
DATE: 04/27/2018 SUBJECTIVE: The patient resting comfortably. Not combative at this time. OBJECTIVE: Vital signs are as follows: Temperature 98.3, pulse 101, respiratory 22, blood pressure is 123/48, oxygen saturation is 95%. HEENT: Atraumatic, normocephalic. Cardiovascular: S1, S2. Respiratory: Good air entry bilaterally. Abdomen is soft, nontender. No masses felt. Extremities: No evidence of significant edema. LABORATORY DATA: WBC is 9.86, hematocrit is 29.4 with a platelet count of 247. Sodium is 135, potassium 4.2, chloride 95, bicarb 29. BUN is 11, creatinine 0.5. ASSESSMENT AND PLAN: 1. Multifocal pneumonia. Continue antibiotics as recommended by Infectious Disease. 2. History of positive [*]abnormalities. Use antipsychotics on p.r.n. basis for agitation. 3. Pulmonary edema. Monitor intakes and outputs, as well as daily weights. Use diuretics as needed. Follow up on chest x-ray. 4. Deep vein thrombosis prophylaxis; Lovenox. 5. Gastrointestinal prophylaxis; proton pump inhibitor. DISPOSITION: Will discharge back to long term when the patient is medically stable. cc: Rohit Shelby MD
[2018-04-27 16:00] LABS: AGAP 12; ALB/GLOB RATIO 0.9; ALBUMIN 2.8 g/dL (3.5-5.0); ALKALINE PHOSPHATASE 67 U/L (32-122); BUN 12 mg/dL (8-22); CALCIUM 8.6 mg/dL (8.8-10.2); CHLORIDE 96 mmol/L (98-107); COSMO 274; CREATININE 0.4 mg/dL (0.7-1.2); ESTIMATED GFR > 60; GLUCOSE 140 mg/dL (70-104); GOT 33 U/L (10-34); GPT 32 U/L (10-44); POTASSIUM 4.2 mmol/L (3.5-5.1); SODIUM 136 mmol/L (136-145); TCO2 28 mmol/L (25-35); TOTAL BILIRUBIN < 0.15 mg/dL (0.20-1.00); TOTAL PROTEIN 5.9 g/dL (6.3-8.3)
[2018-04-27] MEDS: ANAFRANIL PO SCH (21:47)
[2018-04-27] MEDS: FLOMAX PO SCH (21:48)
[2018-04-28] MEDS: MAXIPIME 2 GM in NS 100 ML IV SCH ×2 (01:41→14:21)
[2018-04-28] MEDS: DUONEB (A & A) INH SCH ×6 (03:32→23:35)
--- NOTE | 2018-04-28 04:18 | INFECTIOUS DISEASE PROGRESS NO ---
DATE: 04/27/2018 PRESENT ILLNESS: Mr. Armendariz has improving bilateral pneumonia. On x-ray today , there is mild vascular distension, but no consolidation. MEDICATIONS: Today is day 9 of his treatment with IV vancomycin per pharmacy dosing and cefepime 2 g IV every 12 hours. PHYSICAL EXAMINATION: Vital Signs: Temperature 98.3 degrees, pulse rate 88, respiratory rate 18, blood pressure 123/48, O2 saturation 96% on room air. General: This is a fairly healthy- appearing, middle-aged gentleman. He is lying in the bed, sleeping, in no acute distress. HEENT: Atraumatic, normocephalic. Conjunctivae are pale. He did not open his mouth. Respiratory: Lung sounds are clear in the upper lobes. Some mild rhonchi noted in the bases. Respiratory excursion is normal and symmetric. Cardiovascular: Heart rate is regular. Radial and pedal pulses are palpable bilaterally. No edema noted. Abdomen: Soft, round and nontender. Bowel sounds are active. Neurologic: He is lethargic, but arousable. He has been agitated when awake, so I did not aggressively arouse him at this point. No tremors noted. LABORATORY AND X-RAY: Today, his white count is 9.6, hemoglobin 9.5, platelet count 247,000. Creatinine is 0.4. Estimated GFR is greater than 60. AST is 33, ALT 32, alkaline phosphatase 67. Chest x-ray today shows no consolidation and mild vascular distention. ASSESSMENT AND PLAN: Mr. Armendariz has been treated for bilateral pneumonia. Today is day 9. He is improving based on his chest x-ray. We will go ahead and continue his vancomycin and cefepime through tomorrow. I have set these medications to discontinue after tomorrow's dose. We will go ahead and sign off at this time, but will be available on an as-needed basis. These plans have been discussed with and recommended by Dr. Cornejo. COMORBIDITIES: Severe autism. Dictated by NAVA Das for Chito Cornejo MD This chart was documented by, NAVA Das and accurately reflects the services performed, treatment plan and medical decisions as attested by the providers signature Chito Cornejo MD. cc: Chito Cornejo MD [facility]OSPITALRobinson
[2018-04-28] MEDS: VANCOMYCIN 2 GM in NS 500 ML IV SCH (05:18)
--- NOTE | 2018-04-28 06:53 | Diag Imaging Result Doc PS360 ---
EXAM: CHEST-1 VIEW HISTORY: pneumonia TECHNIQUE: Portable chest single view COMPARISON: 05/24/2018 FINDINGS: Improved inspiratory effort. The heart is not enlarged. Mild vascular distention. There are no infiltrates. No effusion identified. IMPRESSION: Mild interval improvement. Electronically signed by Arya Padron 04/28/2018 6:51 AM
[2018-04-28 07:31] LABS: BASO# 0.03 X1000 (0.0-0.2); BASO% 0.3 % (0.0-0.8); EOS% 1.9 % (0.0-10.0); HEMATOCRIT 32.1 % (42.0-52.0); HEMOGLOBIN 10.5 g/dL (14.0-18.0); IMM GRAN# 0.14 X1000 (0.0-0.04); IMM GRAN% 1.3 % (0.0-0.5); LYMPH# 2.02 X1000 (1.2-3.4); LYMPH% 19.2 % (20.5-51.1); MCH 30.2 PG (27-31); MCHC 32.7 g/dL (33-37); MCV 92.2 FL (81-99); MONO# 1.15 X1000 (0.11-0.59); MONO% 10.9 % (1.7-9.3); MPV 9.9 FL (7.4-10.4); NEUT# 6.98 X1000 (1.4-6.5); NEUT% 66.4 % (42.2-75.2); PLT 254 X1000 (130-400); RBC 3.48 XMIL (4.7-6.1); RDW 13.5 % (11.5-14.5); WBC 10.52 X1000 (4.8-10.8)
[2018-04-28] MEDS: DEPAKOTE ER PO SCH ×2 (08:26→22:18)
[2018-04-28] MEDS: RISPERDAL PO SCH ×2 (08:26→22:18)
[2018-04-28] MEDS: NEUTRA-PHOS PO SCH ×3 (08:26→22:17)
[2018-04-28] MEDS: KLONOPIN PO SCH ×2 (08:26→22:17)
[2018-04-28] MEDS: PROTONIX IV SCH (08:27)
[2018-04-28] MEDS: LOVENOX SUBQ SCH (08:27)
[2018-04-28] MEDS: MAG-OX PO SCH ×2 (08:27→22:18)
[2018-04-28] MEDS: SODIUM CHLORIDE 0.9% INJ SCH (08:27)
--- NOTE | 2018-04-28 15:28 | PROGRESS NOTE ---
DATE: 04/28/2017 SUBJECTIVE: Patient resting comfortable. Not combative at this time. OBJECTIVE: Vital signs are as follows: Temperature 98.1, pulse is 96, respirations 18, blood pressure is 134/67, oxygen saturation is 98%. HEENT: Patient is atraumatic, normocephalic. Cardiovascular: S1, S2. Respiratory system has evidence of good air entry bilaterally. Abdomen is soft, nontender. No masses felt. Extremities: No evidence of edema. Central Nervous System: No obvious focal deficits noted. LABORATORY DATA: WBC is 10.52, hematocrit is 32.1 with a platelet count of [*]54,000. X-ray of the chest shows no infiltrates. ASSESSMENT AND PLAN: 1. Multifocal pneumonia. Today's x-ray shows no infiltrate. The patient is currently on a combination of vancomycin as well as cefepime. 2. History of autism with behavioral abnormalities. Continue antipsychotics on a p.r.n. basis for agitation. 3. Deep vein thrombosis prophylaxis; Lovenox. 4. Gastrointestinal prophylaxis. Proton pump inhibitor. DISPOSITION: We will discharge the patient back to the nursing home once cleared by Infectious Disease. cc: Rohit Shelby MD
[2018-04-28] MEDS: ANAFRANIL PO SCH (22:18)
[2018-04-28] MEDS: FLOMAX PO SCH (22:19)
[2018-04-29] MEDS: DUONEB (A & A) INH SCH ×6 (03:55→23:15)
[2018-04-29] MEDS: NEUTRA-PHOS PO SCH ×5 (08:59→20:40)
[2018-04-29] MEDS: RISPERDAL PO SCH ×2 (08:59→20:40)
[2018-04-29] MEDS: KLONOPIN PO SCH ×2 (08:59→20:39)
[2018-04-29] MEDS: MAG-OX PO SCH ×2 (08:59→20:40)
[2018-04-29] MEDS: SODIUM CHLORIDE 0.9% INJ SCH (08:59)
[2018-04-29] MEDS: PROTONIX IV SCH (08:59)
[2018-04-29] MEDS: DEPAKOTE ER PO SCH ×2 (08:59→20:40)
[2018-04-29] MEDS: LOVENOX SUBQ SCH (09:00)
--- NOTE | 2018-04-29 13:19 | PROGRESS NOTE ---
DATE: 04/29/2018 SUBJECTIVE: Patient is currently calm, lying flatly in the bed. His sitter denies any new complaints or new issues. EXAM: Vital Signs: Afebrile. Pulse 112, respiratory 22, BP 143/62. General: Patient is awake, lying in bed, in no distress. Calm. HEENT: Normocephalic. Neck: Supple. CARDIOVASCULAR: Regular rate. Chest: Clear, nonlabored. Abdomen: Soft, nondistended. Extremities: He has no edema. Has no focal obvious deficits. ASSESSMENT: 1. Multifocal pneumonia. His antibiotics were stopped yesterday. 2. Autism with behavioral abnormalities and occasional episodes of agitation. PLAN: Overall, patient is stable and certainly could be discharged home today. However, the [facility] will not be able to take him back until Tuesday. Therefore, we will continue him in the hospital until such time he can be discharged. cc: Matt Stout MD
[2018-04-29] MEDS: ANAFRANIL PO SCH (20:39)
[2018-04-29] MEDS: FLOMAX PO SCH (20:40)
[2018-04-30] MEDS: DUONEB (A & A) INH SCH ×6 (03:15→22:57)
[2018-04-30] MEDS: PROTONIX PO SCH (06:08)
[2018-04-30] MEDS: KLONOPIN PO SCH ×2 (08:46→23:19)
[2018-04-30] MEDS: DEPAKOTE ER PO SCH ×2 (08:47→23:21)
[2018-04-30] MEDS: MAG-OX PO SCH ×2 (08:47→23:20)
[2018-04-30] MEDS: RISPERDAL PO SCH ×2 (08:47→23:20)
[2018-04-30] MEDS: LOVENOX SUBQ SCH (08:47)
[2018-04-30] MEDS: NEUTRA-PHOS PO SCH ×4 (08:47→23:20)
--- NOTE | 2018-04-30 20:52 | PROGRESS NOTE ---
DATE: 04/30/2018 INTERVAL HISTORY: Patient calm, no obvious distress, sitting with his sitter remains nonverbal and barely cooperative but no new complaints, no acute events overnight. REVIEW OF SYSTEMS: Unable to obtain secondary to patient's mental status. VITALS: T-max 99.0, pulse 99, respirations 18, blood pressure 146/79, O2 saturation 99% on room air. PHYSICAL EXAM: General: No acute distress. Vitals as above. HEENT: Normocephalic. No cervical adenopathy. Cardiovascular: Regular rate and rhythm. No murmurs, rubs, or gallops. Pulmonary: Clear to auscultation bilaterally. Abdomen: Soft, nontender, nondistended. Bowel sounds positive. Extremities: Peripheral pulses intact. No clubbing, cyanosis , or edema. Neurologic: Limited by lack patient cooperation but no obvious focal deficits. Psychiatric: Nonverbal and mostly un-cooperative which is essentially his baseline. Skin: No new rashes or lesions noted. ASSESSMENT AND PLAN: 1. Pneumonia essentially resolved. Now off of antibiotics. Awaiting return to nursing home. They were unable to take him over the weekend. Hopefully back to his nursing home tomorrow. 2. Autism with behavioral abnormalities and likely mental retardation. Continue home Depakote, Zyprexa, Risperdal, as patient is on these will discontinue Geodon as 2 antipsychotics seem sufficient. 3. Hyponatremia resolved. 4. Anemia likely anemia of chronic disease, last blood counts stable. 5. Deep vein thrombosis prophylaxis Lovenox. 6. Disposition. Back to nursing home as soon as this can be arranged likely Tuesday. [facility]
[2018-04-30] MEDS: ANAFRANIL PO SCH (23:20)
[2018-04-30] MEDS: FLOMAX PO SCH (23:20)
[2018-05-01] MEDS: DUONEB (A & A) INH SCH ×5 (03:13→19:35)
[2018-05-01] MEDS: PROTONIX PO SCH (06:01)
[2018-05-01] MEDS: MAG-OX PO SCH ×2 (08:49→22:17)
[2018-05-01] MEDS: KLONOPIN PO SCH ×2 (08:49→22:17)
[2018-05-01] MEDS: NEUTRA-PHOS PO SCH ×4 (08:49→22:19)
[2018-05-01] MEDS: RISPERDAL PO SCH ×2 (08:49→22:18)
[2018-05-01] MEDS: LOVENOX SUBQ SCH (08:50)
[2018-05-01] MEDS: DEPAKOTE ER PO SCH ×2 (08:50→22:19)
[2018-05-01] MEDS: FLOMAX PO SCH (22:17)
[2018-05-01] MEDS: ANAFRANIL PO SCH (22:19)
[2018-05-02] MEDS: DUONEB (A & A) INH SCH ×4 (00:41→11:18)
[2018-05-02 04:50] VITALS: BP 122/57
[2018-05-02] MEDS: PROTONIX PO SCH (06:00)
--- NOTE | 2018-05-02 06:45 | DISCHARGE SUMMARY ---
ADMISSION DATE: 04/18/2018 DISCHARGE DATE: PRINCIPAL DIAGNOSIS: Identified community-acquired pneumonia. SECONDARY DIAGNOSES: 1. Probable sepsis. 2. Autism with behavioral abnormalities. 3. Anemia. DISCHARGE MEDICATIONS: Include the following: Magnesium oxide 400 mg p.o. twice a day, DuoNeb 3 mL every 4 to 6 hours, Anafranil 50 mg p.o. at bedtime, Seroquel 100 mg p.o. twice a day, Klonopin 0.5 mg p.o. twice a day, valproic acid 250 mg p.o. twice a day, ascorbic acid 500 mg p.o. daily, olanzapine 10 mg every morning as needed. Fluoxetine 40 mg p.o. in the morning, Integra Plus capsule 1 p.o. daily, Nexium 40 mg p.o. daily, zinc oxide 20%, <I 00:01:49>, twice a day. Triple antibiotic ointment 3 times a day, [*] Zofran 4 mg every 6 hours, Lasix 20 mg p.o. daily, melatonin 3 mg p.o. once a day, potassium chloride 8 mEq p.o. daily, [*]mg p.o. daily,risperidone done 0.51 mg p.o. twice a day. CONSULTATIONS DONE DURING THIS HOSPITAL STAY: 1. Dr. Chito Cornejo, Infectious Disease. 2. Dr. Mohinder George, Pulmonology. PROCEDURES DONE DURING THIS HOSPITAL STAY: 1. Chest CT, 04/20/2018. 2. Speech modified barium swallow, 04/21/2018. 3. Echocardiogram, 04/20/2018. HOSPITAL COURSE: Mr. Saad Armendariz a 62-year-old male who is a resident from a half-way. X- ray of the chest at the time of presentation showed bibasilar bilateral pneumonia. The patient was started on antibiotics accordingly. Blood cultures grew coagulase negative staphylococcus, probably a contaminant. However, antibiotic management was done by Dr. Chito Cornejo. The patient was also seen by the pulmonary team. The patient did have an episode where he was combative and had to be restrained. At this time patient is no longer agitated and no longer requiring restraints. PHYSICAL EXAMINATION: Vital Signs: During my evaluation his vital signs are as follows: Temperature 97.5, pulse 91, respiratory rate 18, blood pressure 125/64, oxygen 99%. HEENT: Atraumatic,normocephalic. Cardiovascular: S1, S2. Respiratory: Has evidence of good air entry bilaterally. Abdomen: Soft, nontender. No masses felt. Extremities: No evidence of edema. ASSESSMENT AND PLAN: At this time patient can be discharged back to the half-[facility]. He has already completed antibiotic treatment while in the hospital. cc: Rohit Shelby MD
--- NOTE | 2018-05-02 07:20 | Diag Imaging Result Doc PS360 ---
EXAM: CHEST-1 VIEW 05/02/2018 HISTORY: SOB TECHNIQUE: AP portable at [id number] COMMENT: There is alveolar opacity in the right upper lobe. There is some retrocardiac opacity. The inspiration is somewhat suboptimal. Otherwise there has been no significant change since the previous study of 04/28/2018. IMPRESSION: Bronchopneumonia. Electronically signed by Giovani Salter 05/02/2018 7:18 AM
[2018-05-02] MEDS: NEUTRA-PHOS PO SCH (10:23)
[2018-05-02] MEDS: KLONOPIN PO SCH (10:24)
[2018-05-02] MEDS: DEPAKOTE ER PO SCH (10:24)
[2018-05-02] MEDS: RISPERDAL PO SCH (10:24)
[2018-05-02] MEDS: MAG-OX PO SCH (10:24)
[2018-05-02] MEDS: LOVENOX SUBQ SCH (10:25)
--- NOTE | 2018-05-02 12:09 | PROGRESS NOTE ---
DATE: 05/02/2018 SUBJECTIVE: Mr. Bustamante has been in the hospital for the past 14 days. [facility]. Here was admitted initially because of acute onset of hypoxemic respiratory failure due to pneumonia. He has been treated extensively for 10 days with IV antibiotics. He is not clinically stable. He has been discharged since yesterday. I think there was an initial plan to get him to a rehab; however, he does not qualify for any rehab potentials. So he is going to be [facility] back [facility]. The patient is currently not on any antibiotics. HIS VITALS: Blood pressure is 122/57, pulse is 99, respirations 20, temperature 98.5 degrees. OBJECTIVE: Physical exam is unchanged. His lungs sound a lot better. No crepitations, no rhonchi. Cardiovascular: Regular rate and rhythm. ASSESSMENT AND PLAN: The patient was able to tolerate 75% of his breakfast this morning. He is, therefore, stable for discharge back to the [facility]. cc: Ja Stern MD
== END 2018-05-02 13:54 | DRG 871 ==
LOC: ED 03:48 → SUATTDRO 06:21 → EDIPHOLD 06:21 → 3S 13:52 → 3N 04-24 22:38
PROVIDERS: ATTEND Internal Medicine
CPT/HCPCS: 51701; 71010; 71045; 71260; 74230; 80048; 80053; 80069; 80164; 80165; 80202; 81001; 82550; 82784; 82805; 83605; 83735; 83880; 84100; 84145; 84484; 85025; 85610; 85730; 87040; 87070; 87088; 87205; 87275; 87276; 87449; 87804; 87899; 92611; 93005; 93306; 94640; 94660; 94761; 96361; 96365; 96366; 96367; 96368; 96372; 99285; A9270; C9113; J0456; J0692; J0696; J1630; J1650; J1940; J2060; J2358; J2543; J3370; J3475; J3486; J7030; J7040; J7050; Q9967; S0164